=== PATIENT | male | born 1980 | race Asian ===

== ENCOUNTER 2018-10-29 12:56 | Inpatient (IN) | payer OTHER, SELFPAY ==
[2018-10-29] VITALS (15 sets, daily range): BP systolic 114–134; BP diastolic 58–89; PULSE 59–84; RESP 11–20; TEMP 36.3–36.8; O2SAT 97–98; BMI 22.9
--- NOTE | 2018-10-29 13:09 | DI.RAD.S_ITS ---
PROCEDURE: XR CHEST 1V INDICATIONS: dyspnea TECHNIQUE: One view of the chest was acquired. COMPARISON: None. FINDINGS: Surgical changes and devices: None. Lungs and pleura: Lungs are clear. No pleural effusions but there is a significant sized left-sided pneumothorax that measures up to 9.2 cm at the apex and also is elevated medially from the mediastinal contour, but the mediastinum is not shifted rightward Mediastinum: Mediastinal contours appear normal. Heart size is normal. Bones and chest wall: No suspicious bony lesions. Overlying soft tissues appear unremarkable. IMPRESSION: Moderately large left pneumothorax without mediastinal shift and the pneumothorax is largest at the upper lung measuring up to 9.2 cm from the lung tip to the apex of the hemithorax. Findings immediately called to the ER physician caring for the patient. Dictated by: Ivan Smith M.D. on 10/29/2018 at 13:25 Approved by: Ivan Smith M.D. on 10/29/2018 at 13:28
[2018-10-29 13:44] LABS: Add Manual Diff / Slide Review NO; Basophils Absolute Auto 0 /uL (0-100); Basophils Percent Auto 0.7 % (0-2); Eosinophils Absolute Auto 400 /uL (0-450); Eosinophils Percent Auto 6.8 % (2-4); Hematocrit 43.1 % (41-53); Hemoglobin 14.6 g/dL (13.5-17.5); Lymphocytes Absolute Auto 1800 /uL (1100-4500); Lymphocytes Percent Auto 28.5 % (25-40); Mean Corpuscular HGB Conc 33.8 % (30-36); Mean Corpuscular Hemoglobin 30.8 PG (26-34); Mean Corpuscular Volume 91.1 fL (80-100); Monocytes Absolute Auto 700 /uL (0-900); Monocytes Percent Auto 10.5 % (3-14); Neutrophils Absolute Auto 3300 /uL (1500-7000); Neutrophils Percent Auto 53.5 % (50-75); Platelet Count 328 X10^3/uL (150-400); Red Blood Cell Count 4.74 X10^6/uL (4.5-5.9); White Blood Cell Count 6.3 X10^3/uL (4.5-11.0)
[2018-10-29] MEDS: SODIUM CHLORIDE 0.9% 1,000 ML 1000 ML IV (13:47)
[2018-10-29 13:55] LABS: INR 1.1 (0.9-1.3); Prothrombin Time 12.7 SECONDS (10.1-12.7)
[2018-10-29 14:00] LABS: Alanine Aminotransferase 23 IU/L (21-72); Albumin 4.3 g/dL (3.5-5.0); Albumin Globulin Ratio 1.4 (1.0-2.8); Alkaline Phosphatase 52 U/L (38-126); Aspartate Aminotransferase 24 IU/L (17-59); Bilirubin Total 0.5 mg/dL (0.2-1.3); Blood Urea Nitrogen 17 mg/dL (9-20); Calcium 9.6 mg/dL (8.4-10.2); Carbon Dioxide 28 mmol/L (22-32); Chloride 104 mmol/L (98-107); Estimated Glomerular Filt Rate > 60.0 mL/min (>60); Glucose 101 mg/dL (70-100); HEMOLYSIS < 15 (0-50); Sodium 139 mmol/L (137-145); Total Protein 7.3 g/dL (6.3-8.2)
--- NOTE | 2018-10-29 14:04 | ED.SOB ---
HPI - SOB/Dyspnea General Chief Complaint: Shortness of Breath/Dyspnea Stated Complaint: pneumothorax Time Seen by Provider: 10/29/18 13:09 Source: patient Mode of arrival: ambulatory Limitations: no limitations History of Present Illness Patient presents emergency department after being diagnosed with a pneumothorax in clinic. He states that he began noticing a mild burning sensation in his lungs about 1 week ago after he did his physical performance tests for the . He states this involved doing a lot of calisthenics, including pushups, as well as various amounts of running. The patient states that he did not think much of the burning, because his lungs often burn after exerting himself, but he states that over the ensuing few days, he began to notice that he was uncomfortable when he laid on his left side. Patient finally went to see his primary care physician today, and they obtained a chest x-ray, which showed a left-sided pneumothorax. Patient states he was a smoker previously, but has not smoked in some years. He states he is very healthy, and frequently physically active. No history of pneumothorax previously. No diagnosed history of connective tissue disorder. Patient denies shortness of breath currently. No chest pain. No cough. Related Data Home Medications Medication Instructions Recorded Confirmed No Known Home Medications 10/29/18 10/29/18 Allergies Allergy/AdvReac Type Severity Reaction Status Date / Time No Known Drug Allergies Allergy Verified 11/04/18 10:06 Review of Systems Constitutional Denies chills, Denies fever(s), Denies lethargy and Denies weakness Eyes Denies change in vision, Denies eye discharge, Denies irritation and Denies loss of vision ENT Ears, Nose, Mouth, and Throat: Denies change in voice, Denies neck pain and Denies sore throat Cardiovascular Denies chest pain, Denies irregular heart rhythm, Denies lightheadedness, Denies palpitations, Reports dyspnea (Mild, intermittent), Denies dyspnea on exertion and Denies orthopnea Comments: Chest burning Respiratory Denies cough, Reports dyspnea (Mild, intermittent), Denies dyspnea on exertion and Denies wheezing Gastrointestinal Gastrointestinal: Denies abdominal pain, Denies change in bowel habits, Denies diarrhea, Denies nausea and Denies vomiting Genitourinary Denies hematuria, Denies flank pain, Denies urinary incontinence and Denies urinary urgency Musculoskeletal Denies neck pain Integumentary/Breasts Denies pruritus, Denies erythema, Denies rash and Denies wounds Neurologic Denies confusion, Denies loss of vision and Denies weakness Psychiatric Denies anxiety, Denies confusion, Denies depression, Denies homicidal ideation and Denies suicidal ideation Endocrine Denies palpitations Hematologic/Lymphatic Denies easy bruising Allergic/Immunologic Denies wheezing [facility] Medical History Low back pain (Acute) Surgical History No history of previous surgery (Acute) Social History household members: spouse Smoking Status: Former smoker alcohol intake: current Social History household members: spouse Smoking Status: Former smoker alcohol intake: current Exam Initial Vital Signs Initial Vital Signs: Vital Signs Temperature 98.3 F 10/29/18 13:08 Pulse Rate 74 10/29/18 13:08 Respiratory Rate 16 10/29/18 13:08 Blood Pressure 130/77 10/29/18 13:08 Pulse Oximetry 97 10/29/18 13:08 Const General: cooperative and well developed Nutritional Appearance: well nourished Orientation: alert, awake, oriented x3 and not confused HENMT Head: normocephalic and atraumatic Ears: external ears normal and TM's normal bilaterally Nose: external nose normal and No nasal discharge Face and sinus: sinuses nontender, face symmetric, no sinus tenderness and No dry mucous membranes Mouth: oral mucosae normal and moist mucous membranes Teeth and gingiva: dentition normal Throat: tonsils normal and uvula midline Eyes General: appearance normal, both eyes and all related structures Eyelids: eyelids normal Conjunctivae: conjunctivae normal Sclera: sclerae normal Pupils: PERRL EOM: EOM intact bilaterally Neck Neck: normal visual inspection, trachea midline, No lymphadenopathy, No midline deformity and No JVD Lymphatic: No lymphedema Chest Chest: normal inspection of the chest Resp Effort & Inspection: normal respiratory effort, able to speak in complete sentences, no respiratory distress and no use of accessory muscles Auscultation: clear to auscultation bilaterally, no rales, no rhonchi and no wheezes Other: Patient has mildly decreased breath sounds on the left compared to the right. Cardio Rate: regular rate Rhythm: regular rhythm Heart Sounds: no click, no gallops, no murmurs and no rubs Pulses: normal peripheral pulses GI Inspection: non-distended Palpation: soft, no hepatosplenomegaly, No guarding, No pulsatile mass and No tender Auscultation: normal bowel sounds Back/Spine/Pelvis Back: No CVA tenderness Cervical Spine: cervical ROM normal and No pain with cervical ROM Thoracic/Lumbar Spine: thoracic and lumbar spine normal to inspection Skin General: no rashes or lesions noted, No jaundice and No petechiae Neuro General: alert, oriented x3, gait normal and no focal motor deficits Speech: speech normal Extrem General: full ROM, no clubbing, cyanosis or edema, no pedal edema and no calf tenderness Psych Appearance: well kempt Mental Status: mental status grossly normal Attitude: cooperative Thought Content: normal and suicidality Judgment: judgment good Procedures Chest Tube Chest Tube 1: Chest Tube Location: left, anterior axillary line and fifth interspace Chest Tube Prep: Yes betadine prep and sterile drapes applied Local Anesthetic: lidocaine 2% Amount of anesthesia used (mL): 3 Incision Made With: #11 blade Post Procedure: sterile dressing applied Tube Drainage: other (Air) Post Procedure CXR?: Yes Patient Tolerated Procedure: Yes Progress: Pigtail catheter was placed under sterile precautions, without difficulty. Procedural Sedation Patient Age: Patient is 5yrs or older Consent signed: Yes Time out performed: Yes Indication: other (Chest tube placement) ASA Class: I Mallampati Airway Classification: Class I Preparation: chisel worker applied, pulse oximeter, capnometry used and suction/airway equipment at bedside Midazolam: IV Midazolam dose (mg): 5 ED Sedation Level: Minimal Patient Tolerated Procedure: Well Complications: none Course Course Narrative: Patient was evaluated in the emergency department with a chest x-ray, and found to have a large, left-sided pneumothorax. The patient was clinically stable, but I did feel the patient would need to have a chest tube placed and be admitted to the hospital. I spoke with surgeon on-call, who affirmed chest tube rather than 100% oxygen. Patient tolerated the procedure very well, and pneumothorax was found to be largely resolved after placement of chest tube, on repeat x-ray. Patient was admitted to the intensive care unit. Orders Ordered: ED Orders 11/04/18 13:26 XR chest 1V Stat 11/05/18 05:00 Basic Metabolic Panel Routine Complete Blood Count AUTO DIFF Routine Magnesium Routine Acetaminophen (Tylenol) 975 mg PO Q6HR [facility] Last Admin: 11/04/18 17:21 Dose: 975 mg Gabapentin (Neurontin) 900 mg PO BEDTIME [facility] Heparin Sodium (Porcine) (Heparin) 5,000 unit SUBCUT Q8HR [facility] Last Admin: 11/04/18 17:20 Dose: 5,000 unit Lactated Ringer's (Lactated Ringers) 1,000 mls @ 75 mls/hr IV CONT [facility] Last Admin: 11/04/18 15:16 Dose: 75 mls/hr Infusion: 11/04/18 15:16 Dose: 75 mls/hr Admin: 11/04/18 13:45 Dose: 75 mls/hr Infusion: 11/04/18 13:45 Dose: 75 mls/hr Admin: 11/04/18 09:39 Dose: 75 mls/hr Infusion: 11/04/18 09:39 Dose: 75 mls/hr Admin: 11/03/18 22:09 Dose: 75 mls/hr HYDROMORPHONE SUPPLY CHAIN DESIGN MANAGER (6MG/30ML) (Dilaudid [employer] Salesperson (6mg/30ml)) 6 mg in 30 mls @ 0 mls/hr IV Q8HR PRN PRN Reason: Chest Pain Last Admin: 11/04/18 16:15 Dose: 0 mls/hr Methocarbamol (Robaxin) 750 mg PO QID [facility] Last Admin: 11/04/18 17:20 Dose: 750 mg Morphine Sulfate (Morphine) 2 mg IV Q2HR PRN PRN Reason: Pain, Moderate (4-6) Last Admin: 11/04/18 09:33 Dose: 2 mg Admin: 11/01/18 04:12 Dose: 2 mg Admin: 11/01/18 00:05 Dose: 2 mg Admin: 10/31/18 21:42 Dose: 2 mg Morphine Sulfate (Morphine) 4 mg IV Q2HR PRN PRN Reason: Pain, Severe (7-10) Last Admin: 11/04/18 15:16 Dose: 4 mg Naloxone HCl (Narcan) 0.2 mg IV Q2MIN PRN; Protocol PRN Reason: Opiate Reversal Ondansetron HCl (Zofran) 4 mg IV Q4HR PRN PRN Reason: Nausea And Vomiting Polyethylene Glycol (Miralax) 17 gm PO BID LISSETH Sodium Chloride (Normal Saline 0.9% Flush) 10 ml IV BID [facility] Last Admin: 11/04/18 15:37 Dose: Not Given Admin: 11/03/18 21:16 Dose: Not Given Admin: 11/03/18 09:10 Dose: 10 ml Admin: 11/02/18 20:54 Dose: 10 ml Admin: 11/02/18 07:56 Dose: 10 ml Admin: 11/01/18 21:47 Dose: 10 ml Admin: 11/01/18 12:22 Dose: 10 ml Admin: 10/31/18 21:03 Dose: 10 ml Admin: 10/31/18 11:03 Dose: 10 ml Admin: 10/30/18 22:56 Dose: 10 ml Sodium Chloride (Normal Saline 0.9% Flush) 10 ml IV PRN PRN PRN Reason: Flush Discontinued Medications Acetaminophen (Tylenol) 650 mg PO Q6HR PRN PRN Reason: As Needed for Fever/Mild Pain Bupivacaine HCl/Epinephrine Bitart (Sensorcaine 0.25% W/ Epi (Pf)) 30 ml INJ NOW ONE Stop: 11/04/18 12:14 Last Admin: 11/04/18 12:13 Dose: 30 ml Heparin Sodium (Porcine) (Heparin) 5,000 unit SUBCUT Q8HR [facility] Last Admin: 11/03/18 15:06 Dose: Not Given Admin: 11/03/18 06:24 Dose: 5,000 unit Admin: 11/02/18 23:21 Dose: 5,000 unit Admin: 11/02/18 17:41 Dose: 5,000 unit Admin: 11/01/18 21:47 Dose: 5,000 unit Admin: 11/01/18 14:05 Dose: 5,000 unit Admin: 11/01/18 06:28 Dose: 5,000 unit Admin: 10/31/18 21:03 Dose: Not Given Admin: 10/31/18 14:37 Dose: 5,000 unit Admin: 10/31/18 06:02 Dose: 5,000 unit Admin: 10/30/18 22:56 Dose: 5,000 unit Admin: 10/30/18 16:44 Dose: 5,000 unit Admin: 10/30/18 06:09 Dose: 5,000 unit Admin: 10/30/18 00:44 Dose: Not Given Heparin Sodium (Porcine) (Heparin) 5,000 unit SUBCUT Q8HR [facility] Last Admin: 11/04/18 05:59 Dose: Not Given Admin: 11/03/18 22:08 Dose: 5,000 unit Hydromorphone HCl (Dilaudid) 0.25 mg IV Q5MIN PRN PRN Reason: Pain, Mild (1-3) Hydromorphone HCl (Dilaudid) 0.5 mg IV Q5MIN PRN PRN Reason: Pain, Moderate (4-6) Hydromorphone HCl (Dilaudid) 1 mg IV Q5MIN PRN PRN Reason: Pain, Severe (7-10) Last Admin: 11/04/18 14:11 Dose: 1 mg Admin: 11/04/18 13:42 Dose: 1 mg Hydroxyzine HCl (Vistaril) 25 mg IM NOW PRN PRN Reason: Pain, Mild (1-3) Last Admin: 11/04/18 14:34 Dose: 25 mg Hydroxyzine Pamoate (Vistaril) 25 mg PO NOW PRN PRN Reason: Pain, Mild (1-3) Sodium Chloride (Normal Saline 0.9%) 1,000 mls @ 1,000 mls/hr IV BOLUS ONE Stop: 10/29/18 14:20 Last Infusion: 10/29/18 14:47 Dose: 0 mls/hr Admin: 10/29/18 13:47 Dose: 1,000 mls/hr Lactated Ringer's (Lactated Ringers) 1,000 mls @ 100 mls/hr IV CONT [facility] Last Infusion: 10/30/18 15:37 Dose: 0 mls/hr Admin: 10/30/18 05:00 Dose: 100 mls/hr Infusion: 10/30/18 05:00 Dose: 100 mls/hr Admin: 10/29/18 19:01 Dose: 100 mls/hr Lactated Ringer's (Lactated Ringers) 1,000 mls @ 42 mls/hr IV CONT LISSETH Last Infusion: 11/03/18 22:09 Dose: 0 mls/hr Admin: 11/03/18 19:33 Dose: 42 mls/hr Ceftriaxone Sodium/Dextrose (Rocephin) 1 gm in 50 mls @ 100 mls/hr IV INTRA-OP ONE Stop: 11/04/18 09:13 Last Admin: 11/04/18 10:35 Dose: 100 mls/hr Meperidine HCl (Demerol) 25 mg IV Q5MIN PRN PRN Reason: Pain or shivering Metoclopramide HCl (Reglan) 10 mg IV NOW PRN PRN Reason: Nausea And Vomiting Midazolam HCl (Versed) 5 mg IV NOW ONE Stop: 10/29/18 15:40 Last Admin: 10/29/18 15:41 Dose: 5 mg Morphine Sulfate (Morphine) 4 mg IV NOW ONE Stop: 11/04/18 14:42 Last Admin: 11/04/18 14:43 Dose: 4 mg Morphine Sulfate (Morphine) 4 mg IV NOW ONE Stop: 11/04/18 15:50 Last Admin: 11/04/18 16:12 Dose: 4 mg Ondansetron HCl (Zofran) 4 mg IV NOW PRN PRN Reason: Nausea And Vomiting Oxycodone HCl (Percolone) 5 mg PO Q3HR PRN PRN Reason: Pain, Moderate (4-6) Last Admin: 11/01/18 06:48 Dose: 5 mg Admin: 11/01/18 03:52 Dose: 5 mg Admin: 11/01/18 00:35 Dose: 5 mg Admin: 10/31/18 21:04 Dose: 5 mg Admin: 10/31/18 16:41 Dose: 5 mg Admin: 10/30/18 21:22 Dose: 5 mg Admin: 10/30/18 11:46 Dose: 5 mg Admin: 10/30/18 00:31 Dose: 5 mg Admin: 10/29/18 19:27 Dose: 5 mg Oxycodone HCl (Percolone) 10 mg PO Q4HR PRN PRN Reason: Pain, Severe (7-10) Last Admin: 11/04/18 03:17 Dose: 10 mg Admin: 11/03/18 19:31 Dose: 10 mg Admin: 11/03/18 12:20 Dose: 10 mg Admin: 11/03/18 04:12 Dose: 10 mg Admin: 11/02/18 20:53 Dose: 10 mg Admin: 11/02/18 14:48 Dose: 10 mg Admin: 11/02/18 07:53 Dose: 10 mg Admin: 11/01/18 22:54 Dose: 10 mg Admin: 11/01/18 14:03 Dose: 10 mg Admin: 11/01/18 09:00 Dose: 10 mg Oxycodone HCl (Percolone) 5 mg PO Q30MIN PRN PRN Reason: Mild or moderate pain Vital Signs - 8 hr 11/04/18 13:29 11/04/18 13:34 11/04/18 13:39 Temperature 96.8 F L Pulse Rate 80 80 108 H Respiratory Rate 14 13 17 Blood Pressure 121/79 121/83 127/87 Pulse Oximetry 99 96 99 11/04/18 13:44 11/04/18 13:49 11/04/18 13:54 Temperature Pulse Rate 84 89 84 Respiratory Rate 13 12 13 Blood Pressure 134/85 125/81 125/81 Pulse Oximetry 98 97 98 11/04/18 14:09 11/04/18 14:24 11/04/18 14:39 Temperature Pulse Rate 91 H 811 H 83 Respiratory Rate 12 99 H 98 H Blood Pressure 145/91 H 138/88 154/93 H Pulse Oximetry 97 11 L 11/04/18 14:54 11/04/18 15:05 11/04/18 15:35 Temperature 97.5 F L 97.7 F Pulse Rate 82 92 H Respiratory Rate 81 H 16 15 Blood Pressure 138/85 144/86 H 139/75 Pulse Oximetry 11 L 96 96 11/04/18 16:05 11/04/18 17:00 11/04/18 17:05 Temperature 97.7 F 98.0 F Pulse Rate 94 H 107 H 91 H Respiratory Rate 15 12 16 Blood Pressure 143/73 H 128/75 Pulse Oximetry 95 94 93 11/04/18 18:05 Temperature 98.2 F Pulse Rate 82 Respiratory Rate 16 Blood Pressure 124/75 Pulse Oximetry 94 MDM - SOB/Dyspnea Medical Records Attestation: I reviewed the patient's medical records. Lab Data Attestation: I reviewed the patient's lab results. Result diagrams: 10/29/18 13:38 10/29/18 13:38 Lab Results 10/29/18 10/29/18 10/29/18 Range/Units 13:38 13:38 13:38 WBC 6.3 (4.5-11.0) X10^3/uL RBC 4.74 (4.5-5.9) X10^6/uL Hgb 14.6 (13.5-17.5) g/dL Hct 43.1 (41-53) % MCV 91.1 (80-100) fL MCH 30.8 (26-34) PG MCHC 33.8 (30-36) % RDW 13.0 (11.6-14.8) % Plt Count 328 (150-400) X10^3/uL Neut % (Auto) 53.5 (50-75) % Lymph % (Auto) 28.5 (25-40) % [place] % (Auto) 10.5 (3-14) % Eos % (Auto) 6.8 H (2-4) % Baso % (Auto) 0.7 (0-2) % Neut # (Auto) 3300 (7195-4337) /uL Lymph # (Auto) 1800 (3072-8629) /uL [place] # (Auto) 700 (0-900) /uL Eos # (Auto) 400 (0-450) /uL Baso # (Auto) 0 (0-100) /uL PT 12.7 (10.1-12.7) SECONDS INR 1.1 (0.9-1.3) Sodium 139 (137-145) mmol/L Potassium 4.0 (3.4-5.1) mmol/L Chloride 104 (98-107) mmol/L Carbon Dioxide 28 (22-32) mmol/L BUN 17 (9-20) mg/dL Creatinine 1.00 (0.66-1.25) mg/dL Estimated GFR > 60.0 (>60) mL/min BUN/Creatinine Ratio 17.0 (6-22) Glucose 101 H (70-100) mg/dL Calcium 9.6 (8.4-10.2) mg/dL Total Bilirubin 0.5 (0.2-1.3) mg/dL AST 24 (17-59) IU/L ALT 23 (21-72) IU/L Alkaline Phosphatase 52 (38-126) U/L Total Protein 7.3 (6.3-8.2) g/dL Albumin 4.3 (3.5-5.0) g/dL Globulin 3.0 (1.7-4.1) g/dL Albumin/Globulin Ratio 1.4 (1.0-2.8) Imaging Data Chest x-ray: Attestation: I personally reviewed and interpreted this imaging study as follows: Radiologist's impression: PROCEDURE: XR CHEST 1V INDICATIONS: dyspnea TECHNIQUE: One view of the chest was acquired. COMPARISON: None. FINDINGS: Surgical changes and devices: None. Lungs and pleura: Lungs are clear. No pleural effusions but there is a significant sized left-sided pneumothorax that measures up to 9.2 cm at the apex and also is elevated medially from the mediastinal contour, but the mediastinum is not shifted rightward Mediastinum: Mediastinal contours appear normal. Heart size is normal. Bones and chest wall: No suspicious bony lesions. Overlying soft tissues appear unremarkable. IMPRESSION: Moderately large left pneumothorax without mediastinal shift and the pneumothorax is largest at the upper lung measuring up to 9.2 cm from the lung tip to the apex of the hemithorax. Findings immediately called to the ER physician caring for the patient. Dictated by: Ivan Smith M.D. on 10/29/2018 at 13:25 Approved by: Ivan Smith M.D. on 10/29/2018 at 13:28 [place] [address] XRay Report Signed Patient: Vel Dhaliwal CMR#: [id number] : 1980Acct:[id number] Age/Sex: 38 / MDate of Service: 10/29/18 Loc: Accession Number: [id number] Procedure: XR chest 1V Ordering Provider: Amy Eid MD PROCEDURE: XR CHEST 1V INDICATIONS: post chest tube insertion TECHNIQUE: One view of the chest was acquired. COMPARISON: [facility] , XR CHEST 1V, 10/29/2018, 13:14. FINDINGS: Surgical changes and devices: A new left small diameter chest tube has been placed from a left-sided lateral approach.. Lungs and pleura: Lungs are abnormal with focal atelectasis along the area of the anterior pneumothorax medially in front of the left heart. The large apical pneumothorax has diminished significantly from 9.2 cm previously now to only approximately 3.1 cm at the apex.. No pleural effusions or pneumothorax. Mediastinum: Mediastinal contours appear normal. Heart size is normal. Bones and chest wall: No suspicious bony lesions. Overlying soft tissues appear unremarkable. IMPRESSION: Chest tube placement on the left, resolving much of the moderately large left pneumothorax that appears spontaneous. Secondary atelectasis is the likely cause for a focal band of radiodensity adjacent to the elevated anterior pneumothorax margin of the left lung. Dictated by: Ivan Smith M.D. on 10/29/2018 at 15:46 Approved by: Ivan Smith M.D. on 10/29/2018 at 15:48 Discharge Plan Departure Patient Disposition: Admitted As Inpatient Clinical Impression: Pneumothorax Qualifiers: Pneumothorax type: spontaneous, primary Qualified Code(s): J93.11 - Primary spontaneous pneumothorax Discharge Date/Time: 10/29/18 15:58 Interventions: ED Discharge Assessment Last Done: 10/29/18 15:58 Admit Date/Time: 10/29/18 16:14 Admit Provider: Jamal Doty
--- NOTE | 2018-10-29 15:29 | DI.RAD.S_ITS ---
PROCEDURE: XR CHEST 1V INDICATIONS: post chest tube insertion TECHNIQUE: One view of the chest was acquired. COMPARISON: [facility], CR, XR CHEST 1V, 10/29/2018, 13:14. FINDINGS: Surgical changes and devices: A new left small diameter chest tube has been placed from a left-sided lateral approach.. Lungs and pleura: Lungs are abnormal with focal atelectasis along the area of the anterior pneumothorax medially in front of the left heart. The large apical pneumothorax has diminished significantly from 9.2 cm previously now to only approximately 3.1 cm at the apex.. No pleural effusions or pneumothorax. Mediastinum: Mediastinal contours appear normal. Heart size is normal. Bones and chest wall: No suspicious bony lesions. Overlying soft tissues appear unremarkable. IMPRESSION: Chest tube placement on the left, resolving much of the moderately large left pneumothorax that appears spontaneous. Secondary atelectasis is the likely cause for a focal band of radiodensity adjacent to the elevated anterior pneumothorax margin of the left lung. Dictated by: Ivan Smith M.D. on 10/29/2018 at 15:46 Approved by: Ivan Smith M.D. on 10/29/2018 at 15:48
[2018-10-29] MEDS: MIDAZOLAM 2 MG/2 ML VIAL 5 MG IV (15:41)
--- NOTE | 2018-10-29 16:04 | PM.HP.1 ---
History of Present Illness Date Patient Seen: 10/29/18 Time Patient Seen: 16:04 Chief complaint: pneumothorax Narrative: Healthy 38 yo man with remote 7 pack/yr hx of smoking presented with several days of acute SOB following rigourus exercise 7 days ago. PT was able to perform significant activity - paddled a kayak, ran etc. but noticed more SOB. Also SOB when layed on L side. Due to 's concern saw PMD today who obtained an CXR demonstrating a large 9+cm Left pneumothorax without air space disease. He was taken urgently to [facility] where a CXR confirmed findings and a small bore chest tube was placed in the L axilla. Pt felt relief with post procedure CXR showing only small 1cm residueal ptx. Pt continues to feel well. No chest pain Patient History Medical History (Updated 10/29/18 @ 16:15 by Amy Eid MD) Low back pain (Acute) Surgical History (Updated 10/29/18 @ 16:09 by Jamal Doty MD) No history of previous surgery (Acute) Social History household members: spouse Smoking Status: Former smoker alcohol intake: current Family & Social History Safety & Behavioral: Feels Safe in Current Yes Environment Been Physically Hurt or No Threatened By a Person Tobacco & Substance use: Smoking Status Never smoker Substance Use Type does not use Meds Home Medications Medication Instructions Recorded Confirmed Type No Known Home Medications 10/29/18 10/29/18 History Allergies Allergy/AdvReac Type Severity Reaction Status Date / Time No Known Drug Allergies Allergy Verified 10/29/18 13:08 Review of Systems Constitutional Constitutional: Denies fever(s) Eyes Eyes: Denies bulging eyes ENT Ears, Nose, Mouth, and Throat: No lip swelling Cardiovascular Cardiovascular: Denies generalize swelling Respiratory Respiratory: Denies stridor Gastrointestinal Gastrointestinal: Denies coffee ground emesis Musculoskeletal Musculoskeletal: Denies loss of height Integumentary/Breasts Skin/Breast: Denies wounds Neurologic Neurologic: Denies abnormal speech and Denies confusion Psychiatric Psychiatric: Denies confusion Endocrine Endocrine: Denies deepening of the voice Hematologic/Lymphatic Hematologic/Lymphatic: Denies lymphadenopathy Allergic/Immunologic Allergic/Immunologic: Denies lip swelling Exam Vital Signs (past 8 hours): - 10/29/18 13:08 10/29/18 15:00 10/29/18 15:05 Temperature 98.3 F Pulse Rate 74 69 70 Respiratory Rate 16 18 18 Blood Pressure 130/77 Blood Pressure [Right Arm] 134/79 126/63 Pulse Oximetry 97 98 97 10/29/18 15:10 10/29/18 15:15 10/29/18 15:20 Temperature Pulse Rate 72 83 84 Respiratory Rate 20 18 20 Blood Pressure Blood Pressure [Right Arm] 134/76 118/69 126/67 Pulse Oximetry 98 97 98 10/29/18 15:25 10/29/18 15:30 10/29/18 15:35 Temperature Pulse Rate 76 74 75 Respiratory Rate 18 20 20 Blood Pressure Blood Pressure [Right Arm] 114/71 123/69 118/78 Pulse Oximetry 97 98 98 10/29/18 15:40 10/29/18 15:45 10/29/18 15:58 Temperature Pulse Rate 74 68 68 Respiratory Rate 20 18 20 Blood Pressure 114/73 Blood Pressure [Right Arm] 119/67 114/73 Pulse Oximetry 97 98 98 10/29/18 15:59 Temperature Pulse Rate 65 Respiratory Rate 11 L Blood Pressure Blood Pressure [Right Arm] Pulse Oximetry Oxygen Delivery Method Room Air Oxygen Flow Rate 2 Const General: cooperative and healthy appearing Orientation: alert [facility] Head: normal to inspection Nose: nares normal Mouth: oral mucosae normal and lip normal Eyes Eyelids: eyelids normal Conjunctivae: conjunctivae normal Sclera: sclerae normal Neck Neck: supple and other (No thyromegally) Chest Chest: other (Breathing comfortably, LCTAB, unable to detect reduced breath sounds on L) Cardio Rhythm: regular rhythm Heart Sounds: S1 normal, S2 normal, no gallops, no murmurs and no rubs GI Other: abd soft nontender nondistended Skin General: no rashes or lesions noted Neuro General: alert and awake Psych Appearance: grossly normal Affect: normal affect Objective Labs Result Diagrams: 10/29/18 13:38 10/29/18 13:38 Labs: Laboratory Results - last 24 hr 10/29/18 10/29/18 10/29/18 13:38 13:38 13:38 WBC 6.3 RBC 4.74 Hgb 14.6 Hct 43.1 MCV 91.1 MCH 30.8 MCHC 33.8 RDW 13.0 Plt Count 328 Neut % (Auto) 53.5 Lymph % (Auto) 28.5 [place] % (Auto) 10.5 Eos % (Auto) 6.8 H Baso % (Auto) 0.7 Neut # (Auto) 3300 Lymph # (Auto) 1800 [place] # (Auto) 700 Eos # (Auto) 400 Baso # (Auto) 0 PT 12.7 INR 1.1 Sodium 139 Potassium 4.0 Chloride 104 Carbon Dioxide 28 BUN 17 Creatinine 1.00 Estimated GFR > 60.0 BUN/Creatinine Ratio 17.0 Glucose 101 H Calcium 9.6 Total Bilirubin 0.5 AST 24 ALT 23 Alkaline Phosphatase 52 Total Protein 7.3 Albumin 4.3 Globulin 3.0 Albumin/Globulin Ratio 1.4 Assessment & Plan Assessment & Plan narrative: 38M now with first ever episode of secondary spontaneous pneumothroax on L in the setting of remote 7 pack yr hx of smoking, now with small residual ptx after small bore chest tube insertion by ED using selenger technique. No respiratory difficulty. 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 Will think about overnight - if wants surgery would perform tomorrow Plan: CT to -20 suction overnight with follow up CXR in am Ok to eat tonight Ongoing discussion re Blebectomy and VATS plurectomy to prevent recurrence.
--- NOTE | 2018-10-29 16:09 | P.HP_ITS ---
History of Present Illness Date Patient Seen: 10/29/18 Time Patient Seen: 16:04 Chief complaint: pneumothorax Narrative: Healthy 38 yo man with remote 7 pack/yr hx of smoking presented with several days of acute SOB following rigourus exercise 7 days ago. PT was able to perform significant activity - paddled a kayak, ran etc. but noticed more SOB. Also SOB when layed on L side. Due to 's concern saw PMD today who obtained an CXR demonstrating a large 9+cm Left pneumothorax without air space disease. He was taken urgently to [facility] where a CXR confirmed findings and a sm all bore chest tube was placed in the L axilla. Pt felt relief with post procedure CXR showing only small 1cm residueal ptx. Pt continues to feel well. No chest pain Patient History Medical History (Updated 10/29/18 @ 16:15 by Amy Eid MD) Low back pain (Acute) Surgical History (Updated 10/29/18 @ 16:09 by Jamal Doty MD) No history of previous surgery (Acute) Social History household members: spouse Smoking Status: Former smoker alcohol intake: current Family & Social History Safety & Behavioral: Feels Safe in Current Yes Environment Been Physically Hurt or No Threatened By a Person Tobacco & Substance use: Smoking Status Never smoker Substance Use Type does not use Meds Home Medications Medication Instructions Recorded Confirmed Type No Known Home Medications 10/29/18 10/29/18 History Allergies Allergy/AdvReac Type Severity Reaction Status Date / Time No Known Drug Allergies Allergy Verified 10/29/18 13:08 Review of Systems Constitutional Constitutional: Denies fever(s) Eyes Eyes: Denies bulging eyes ENT Ears, Nose, Mouth, and Throat: No lip swelling Cardiovascular Cardiovascular: Denies generalize swelling Respiratory Respiratory: Denies stridor Gastrointestinal Gastrointestinal: Denies coffee ground emesis Musculoskeletal Musculoskeletal: Denies loss of height Integumentary/Breasts Skin/Breast: Denies wounds Neurologic Neurologic: Denies abnormal speech and Denies confusion Psychiatric Psychiatric: Denies confusion Endocrine Endocrine: Denies deepening of the voice Hematologic/Lymphatic Hematologic/Lymphatic: Denies lymphadenopathy Allergic/Immunologic Allergic/Immunologic: Denies lip swelling Exam Vital Signs (past 8 hours): - 10/29/18 13:08 10/29/18 15:00 10/29/18 15:05 Temperature 98.3 F Pulse Rate 74 69 70 Respiratory Rate 16 18 18 Blood Pressure 130/77 Blood Pressure [Right Arm] 134/79 126/63 Pulse Oximetry 97 98 97 10/29/18 15:10 10/29/18 15:15 10/29/18 15:20 Temperature Pulse Rate 72 83 84 Respiratory Rate 20 18 20 Blood Pressure Blood Pressure [Right Arm] 134/76 118/69 126/67 Pulse Oximetry 98 97 98 10/29/18 15:25 10/29/18 15:30 10/29/18 15:35 Temperature Pulse Rate 76 74 75 Respiratory Rate 18 20 20 Blood Pressure Blood Pressure [Right Arm] 114/71 123/69 118/78 Pulse Oximetry 97 98 98 10/29/18 15:40 10/29/18 15:45 10/29/18 15:58 Temperature Pulse Rate 74 68 68 Respiratory Rate 20 18 20 Blood Pressure 114/73 Blood Pressure [Right Arm] 119/67 114/73 Pulse Oximetry 97 98 98 10/29/18 15:59 Temperature Pulse Rate 65 Respiratory Rate 11 L Blood Pressure Blood Pressure [Right Arm] Pulse Oximetry Oxygen Delivery Method Room Air Oxygen Flow Rate 2 Const General: cooperative and healthy appearing Orientation: alert [facility] Head: normal to inspection Nose: nares normal Mouth: oral mucosae normal and lip normal Eyes Eyelids: eyelids normal Conjunctivae: conjunctivae normal Sclera: sclerae normal Neck Neck: supple and other (No thyromegally) Chest Chest: other (Breathing comfortably, LCTAB, unable to detect reduced breath sounds on L) Cardio Rhythm: regular rhythm Heart Sounds: S1 normal, S2 normal, no gallops, no murmurs and no rubs GI Other: abd soft nontender nondistended Skin General: no rashes or lesions noted Neuro General: alert and awake Psych Appearance: grossly normal Affect: normal affect Objective Labs Result Diagrams: 10/29/18 13:38 10/29/18 13:38 Labs: Laboratory Results - last 24 hr 10/29/18 10/29/18 10/29/18 13:38 13:38 13:38 WBC 6.3 RBC 4.74 Hgb 14.6 Hct 43.1 MCV 91.1 MCH 30.8 MCHC 33.8 RDW 13.0 Plt Count 328 Neut % (Auto) 53.5 Lymph % (Auto) 28.5 [place] % (Auto) 10.5 Eos % (Auto) 6.8 H Baso % (Auto) 0.7 Neut # (Auto) 3300 Lymph # (Auto) 1800 [place] # (Auto) 700 Eos # (Auto) 400 Baso # (Auto) 0 PT 12.7 INR 1.1 Sodium 139 Potassium 4.0 Chloride 104 Carbon Dioxide 28 BUN 17 Creatinine 1.00 Estimated GFR > 60.0 BUN/Creatinine Ratio 17.0 Glucose 101 H Calcium 9.6 Total Bilirubin 0.5 AST 24 ALT 23 Alkaline Phosphatase 52 Total Protein 7.3 Albumin 4.3 Globulin 3.0 Albumin/Globulin Ratio 1.4 Assessment & Plan Assessment & Plan narrative: 38M now with first ever episode of secondary spon taneous pneumothroax on L in the setting of remote 7 pack yr hx of smoking, now with small residual ptx after small bore chest tube insertion by ED using selenger technique. No respiratory difficulty. 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 Will think about overnight - if wants surgery would perform tomorrow Plan: CT to -20 suction overnight with follow up CXR in am Ok to eat tonight Ongoing discussion re Blebectomy and VATS plurectomy to prevent recurrence.
[2018-10-29] MEDS: LACTATED RINGERS 1,000 ML 100 ML IV (19:01)
[2018-10-29] MEDS: OXYCODONE IR 5 MG TABLET PO (19:27)
[2018-10-30] MEDS: OXYCODONE IR 5 MG TABLET PO ×3 (00:31→21:22)
[2018-10-30 00:35] VITALS: BP 120/63; PULSE 64; RESP 18; TEMP 36.6; O2SAT 97
--- NOTE | 2018-10-30 03:16 | PC.NURSE ---
Securities Adviser Note: 0030: Awake, vital signs stable. Chest tube in place in lt chest, to 30cm suction; dressing cdi and tube is secure. IV in place in lt forearm. Pt states he has some pain at at ct insertion site. at bedside.
[2018-10-30 04:10] VITALS: BP 115/57; PULSE 61; RESP 18; TEMP 36.9; O2SAT 99
[2018-10-30] MEDS: LACTATED RINGERS 1,000 ML 100 ML IV (05:00)
--- NOTE | 2018-10-30 06:00 | DI.RAD.S_ITS ---
PROCEDURE: XR CHEST 1V INDICATIONS: Left pneumothorax TECHNIQUE: One view of the chest was acquired. COMPARISON: [facility], , XR CHEST 1V, 10/29/2018, 15:34. FINDINGS: Surgical changes and devices: Left-sided pigtail chest tube. Lungs and pleura: Left-sided pneumothorax is stable compared to assess the precise 2019 1534 hrs. Lungs are clear. No pleural effusions. Mediastinum: Mediastinal contours appear normal. Heart size is normal. Bones and chest wall: No suspicious bony lesions. Overlying soft tissues appear unremarkable. IMPRESSION: Stable left apical pneumothorax. Dictated by: Jacqui Mcguire MD, PhD on 10/30/2018 at 8:05 Approved by: Jacqui Mcguire MD, PhD on 10/30/2018 at 8:06
[2018-10-30] MEDS: HEPARIN 5,000 UNIT/ML VIAL 5000 UNIT SUBCUT ×3 (06:09→22:56)
[2018-10-30 08:00] VITALS: BP 120/72; PULSE 53; RESP 16; TEMP 36.5; O2SAT 98
--- NOTE | 2018-10-30 08:54 | CM.DANOTE ---
Discharge Planning/Care Management DCP: assessment: case received, EMR reviewed and met with pt and his . Introduced self and role. 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 Jamal Doty. [facility] PCP: [facility]. Pt admitted after discover of a large pneumothorax and now with chest tube and surgery now expected today. Pt and his are very open to the surgery, worried only that [facility] may not pay for it. Conferred with UR RN Darvin who is reviewing case. He notes that this surgery is, per [facility] guidelines, very much an appropriate part of INPT treatement for this specific patient. The UR team is faxing the documentation to [facility] as per usual UR protocol. Pt and his Yuridia are updated re above and express appreciation for the information. Pt says he expects Dr. Doty to return later today. They spoke this morning, surgery is now planned and with time pending the surgery schedule. RN Coordinator Pepito and RN Marly are updated. P: will follow prn for any d/c needs. Discharge Assessment Start: 10/30/18 08:52 Freq: Status: Active Protocol: Document 10/30/18 08:53 ITV (Rec: 10/30/18 08:53 ITV [id number]) Discharge Planning Assessment Advance Directives? No History Provided By Patient Family Member Medical Record Has Patient been admitted in last 30 No days? Prior Living Arrangements House Household Members spouse Independent with ADL's Yes Is patient alert and oriented? Yes Caregiver for Another No Review Status In Process Next Review Type Continued Stay Review
[2018-10-30 13:06] VITALS: BP 115/79; PULSE 64; RESP 16; TEMP 36.6; O2SAT 99
--- NOTE | 2018-10-30 13:26 | P.PN_ITS ---
Subjective Date Patient Seen: 10/30/18 Time Patient Seen: 09:00 Interval history: Feeling well, No SOB no pain Exam Vital Signs (past 8 hours): - 10/30/18 08:00 10/30/18 13:06 Temperature 97.7 F 97.8 F Pulse Rate 53 L 64 Respiratory Rate 16 16 Blood Pressure 120/72 115/79 Pulse Oximetry 98 99 Oxygen Delivery Method Room Air Oxygen Flow Rate 0 Narrative Exam Narrative: comfortable NAD On RA breating comfortably CT with essentially no output, no airleak abd soft nontender Objective Labs Result Diagrams: 10/29/18 13:38 10/29/18 13:38 Labs: Laboratory Results - last 24 hr 10/29/18 10/29/18 10/29/18 13:38 13:38 13:38 WBC 6.3 RBC 4.74 Hgb 14.6 Hct 43.1 MCV 91.1 MCH 30.8 MCHC 33.8 RDW 13.0 Plt Count 328 Neut % (Auto) 53.5 Lymph % (Auto) 28.5 [place] % (Auto) 10.5 Eos % (Auto) 6.8 H Baso % (Auto) 0.7 Neut # (Auto) 3300 Lymph # (Auto) 1800 [place] # (Auto) 700 Eos # (Auto) 400 Baso # (Auto) 0 PT 12.7 INR 1.1 Sodium 139 Potassium 4.0 Chloride 104 Carbon Dioxide 28 BUN 17 Creatinine 1.00 Estimated GFR > 60.0 BUN/Creatinine Ratio 17.0 Glucose 101 H Calcium 9.6 Total Bilirubin 0.5 AST 24 ALT 23 Alkaline Phosphatase 52 Total Protein 7.3 Albumin 4.3 Globulin 3.0 Albumin/Globulin Ratio 1.4 Assessment & Plan Assessment & Plan narrative: 38 yo man HD2 admitted with secondary spontaneous pneumothorax with remote smoking hx. Lung is slowly reinflating after small jaskaran CT placement in ED yesterday - residual 2cm apical ptx, improved over yest by small amount. Substantial discussion had with pt regarding management - I discussed that with prior smoking history he very likely has apical blebs and is at risk of recurrence. Without smoking history i quoted him a 20% risk of recurrence as the lower range of risk. With the addition of his 7 pack yrs of smoking could be as high at 50%. 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 He is concerned with the possibility of recurrence in a setting without readily available surgical care. With this in mind he desires VATS blecbectomy and plurectomy to significantly reduce the chance of recurrence. With OR staffing dont have the capacity to perform this today. Plan is to continue chest tube to -20 today, CXR tomorrow. If still in house early next week would perform surgery, other cannon can return to hospital if meets d/c criteria OK to eat IS Dr Chow kindly covering this weekend
[2018-10-30 15:35] VITALS: BP 101/52; PULSE 62; RESP 16; TEMP 36.4; O2SAT 96
[2018-10-30 20:39] VITALS: BP 114/62; PULSE 60; RESP 16; TEMP 36.7; O2SAT 99
--- NOTE | 2018-10-30 22:03 | PC.NURSE ---
ashley note pt with small left anterior chest tube, connected to wall suction. No air leak noted. No crepitus palpated. Medicated once with oxycodone. Pt up in room, moving as far as chest tube allows.
[2018-10-30] MEDS: SODIUM CHLORIDE 0.9% FLUSH 10 ML IV (22:56)
--- NOTE | 2018-10-31 | DI.CT.S_ITS ---
PROCEDURE: CT CHEST W CON INDICATIONS: Defined bleb anatomy left chest. Rule out any neoplastic pr TECHNIQUE: After the administration of intravenous contrast, 5 mm thick sections acquired from the pulmonary apices to the posterior costophrenic angles. 7 mm thick coronal and sagittal MIP reformats were acquired. For radiation dose reduction, the following was used: automated exposure control, adjustment of mA and/or kV according to patient size. COMPARISON: [facility], CR, XR CHEST 1V, 10/29/2018, 13:14. [facility], CR, XR CHEST 1V, 10/31/2018, 5:42. FINDINGS: Image quality: Diagnostic. Lungs and pleura: There is a large left-sided pneumothorax without definite mediastinal shift. The pigtail catheter has been withdrawn and is positioned within the pectoralis muscles and not within the thoracic cavity. Areas of interstitial thickening within the left lung are evident. However, no focal: The or definitive emphysematous changes are evident. The airways within the left lung appear to be within normal limits. Areas of atelectasis are seen along the posterior aspect of the left lung. There is a small left-sided pleural effusion. Aeration of the right lung is within normal limits. No blebs are evident within the right lung. The right lung is well aerated. No right-sided pneumothorax or pleural effusion is identified. Mediastinum: Heart size is normal. No pericardial effusion. No mediastinal or hilar adenopathy by size criteria. Thoracic aorta and central pulmonary arteries are normal in size. Esophagus is normal in caliber. No hiatal hernia. Bones and chest wall: No suspicious bony lesions. No vertebral body compression fractures. No displaced rib fractures are evident. No axillary or supraclavicular adenopathy by size criteria. Thyroid gland is not enlarged or inflamed. Abdomen: Visualized upper abdominal solid organs appear normal. Upper abdominal bowel loops are normal in caliber. IMPRESSION: 1. Large left-sided pneumothorax. No definitive mediastinal shift. The cause is uncertain. No obvious blebs or displaced rib fractures. 2. Left-sided chest tube has been withdrawn and is now located outside the thoracic cavity. Please consider replacing this chest tube. 3. Interstitial prominence within the left lung probably represents areas of atelectasis. Superimposed chronic interstitial changes/scarring are difficult to exclude. Dictated by: Dung Arias M.D. on 10/31/2018 at 16:57 Approved by: Dung Arias M.D. on 10/31/2018 at 17:02
[2018-10-31 01:41] VITALS: BP 111/68; PULSE 56; RESP 16; TEMP 36.9; O2SAT 97
--- NOTE | 2018-10-31 01:46 | PC.NURSE ---
Addendum entered by Elizabeth Evans R.N. 10/31/18 06:11: Slept most of shift. Chest xray completed by [employer]. Given incentive spirometer and provided teaching on use and frequency; demonstrated ability to use and able to get to 3200 Original Note: Patient is alert and oriented. Breath sounds CTA with RA sat of 97%. Chest tube intact with no air leak/crepitus; to 20cm suction. Denies SOB either at rest or with activity. Denies nausea. BT present. Independent with mobiity. Voiding without difficulty. Fall risk score is low. Denies pain. rooming in.
[2018-10-31 06:00] VITALS: BP 116/58; PULSE 59; RESP 16; TEMP 36.7; O2SAT 95
--- NOTE | 2018-10-31 06:00 | DI.RAD.S_ITS ---
PROCEDURE: XR CHEST 1V INDICATIONS: Left pneumothorax TECHNIQUE: One view of the chest was acquired. COMPARISON: None. FINDINGS: Surgical changes and devices: A left-sided chest tube is identified with the tip overlying the upper portion of the left lung. Lungs and pleura: There is a moderate-sized left-sided pneumothorax, which has increased in the interim, measuring approximately 4.4 cm at the apex, previously measuring 2.5 cm. No definite pleural effusion is evident. Interstitial changes within the lungs probably represent chronic lung changes. No lobar consolidation is evident. Mediastinum: Mediastinal contours appear normal. Heart size is normal. Bones and chest wall: No suspicious bony lesions. Overlying soft tissues appear unremarkable. IMPRESSION: 1. Moderate left-sided pneumothorax has increased in the interim. 2. Left-sided chest tube catheter appears grossly unchanged. Dictated by: Dung Arias M.D. on 10/31/2018 at 7:09 Approved by: Dung Arias M.D. on 10/31/2018 at 7:11
[2018-10-31] MEDS: HEPARIN 5,000 UNIT/ML VIAL 5000 UNIT SUBCUT ×2 (06:02→14:37)
[2018-10-31 10:05] VITALS: BP 119/74; PULSE 77; RESP 16; TEMP 36.7; O2SAT 98
--- NOTE | 2018-10-31 10:27 | CM.DPC ---
DCP: continued: EMR reviewed and note that Dr. Mckenzie did followup later in day with pt re his surgery after conferring with the surgical team. He notes that OR staffing could not accommodate pt for surgery yesterday as per initial plan and updated plan now is for pt to either d/c to home if he is stable for same or continue in the hospital setting with the surgery early in the week. Dr. Chow should be in later today....will be following.
[2018-10-31] MEDS: SODIUM CHLORIDE 0.9% FLUSH 10 ML IV ×2 (11:03→21:03)
--- NOTE | 2018-10-31 11:16 | PC.NURSE ---
AM shift Pt is A/o x4, denies pain at present. CT to L side with dressing that is CDI. No crepitus noted. Dressing CDI. Chest tube to 20mm suction. Pt is up in the room indep. Spo2 99% RA. IS being used with > 3000, is rooming in. Plan to continue for Surgery on Friday. No needs at present.
--- NOTE | 2018-10-31 14:03 | P.PN_ITS ---
Subjective Date Patient Seen: 10/31/18 Time Patient Seen: 14:00 Interval history: Patient is breathing well. Has no pain or shortness of breath. Exam Vital Signs (past 8 hours): - 10/31/18 10:05 Temperature 98.1 F Pulse Rate 77 Respiratory Rate 16 Blood Pressure 119/74 Pulse Oximetry 98 Oxygen Delivery Method Room Air Oxygen Flow Rate 0 Narrative Exam Narrative: Decreased breath sounds on the left anterior compared to the right. Equal breath sounds in the bases. Heart regular rate and rhythm without murmur gallop. Abdomen is scaphoid soft nontender. Patient is alert and oriented. Objective Labs Result Diagrams: 10/29/18 13:38 10/29/18 13:38 Assessment & Plan Assessment & Plan narrative: Patient with spontaneous pneumothorax. The x-ray this morning shows lungs little further collapse. I looked at the wall suction it was quite low side turned up. May just be a matter of increasing suction on the tube that presently is there. I did note however there is not fluctuation in the tube and I checked all the connections which seemed to be okay. The tube does not appear to have backed out of the chest are not quite sure if we need at a tube or not. In any of think it prudent to start planning for blood resection. The patient is not sealed and though he has no symptoms, he was min imally symptomatic when he came in with 50% pneumothorax. We will see if changing the wall suction has any effect. He is to continue to deep breathe and cough and ambulate.
[2018-10-31 15:34] VITALS: BP 110/68; PULSE 62; RESP 16; TEMP 36.4; O2SAT 97
[2018-10-31] MEDS: OXYCODONE IR 5 MG TABLET PO ×2 (16:41→21:04)
--- NOTE | 2018-10-31 18:12 | PC.NURSE ---
Pt is sitting up in bed and in no distress. Reported feeling of heaviness on left chest well. Given percolone to help with discomfort. Chest drain connections intact, dressing intact and drainage device connected to wall suction at 95 mmhg of continuous. Noted no blubbling or change in fluid level with cough. Called MD to advise. CT scan with contrast already ordered at this time. Surgeon aware of lack of signs of airflow to cannister. Pt then completed CT scan and report is now back. Waiting for surgeons orders. Pt reports no discomfort at this time.
--- NOTE | 2018-10-31 19:51 | PC.NURSE ---
Pt taken to ICU for chest tube placement. Will have conscious sedation procedure and then return to his room once his vital signs are stable.
--- NOTE | 2018-10-31 20:10 | DI.RAD.S_ITS ---
PROCEDURE: XR CHEST 1V INDICATIONS: chest tube TECHNIQUE: One view of the chest was acquired. COMPARISON: [facility], CR, XR CHEST 1V, 10/29/2018, 13:14. [facility], CR, XR CHEST 1V, 10/29/2018, 15:34. [facility], CR, XR CHEST 1V, 10/30/2018, 5:41. [facility], CT, CT CHEST W CON, 10/31/2018, 16:54. FINDINGS: Surgical changes and devices: None. Lungs and pleura: Lungs are clear. No pleural effusions and the relatively large pneumothorax that redeveloped prior to CT scanning earlier today has been almost completely resolved by a left lateral pleural drain extending towards the apex. pneumothorax. Mediastinum: Mediastinal contours appear normal. Heart size is normal. Bones and chest wall: No suspicious bony lesions. Overlying soft tissues appear unremarkable. IMPRESSION: Scant residual left apical pneumothorax after replacement of a left pleural chest tube to resolve moderately large recurrent left pneumothorax. A Dictated by: Ivan Smith M.D. on 10/31/2018 at 20:28 Approved by: Ivan Smith M.D. on 10/31/2018 at 20:32
--- NOTE | 2018-10-31 20:24 | P.OP_ITS ---
Operative Date/Time/Diagnoses Date of procedure: 10/31/18 Time of procedure: 20:18 Pre-op diagnosis: Displaced chest tube Post-op diagnosis: same Procedure & Clinicians Procedure: Placement of 20 Icelandic chest tube Same procedure as scheduled: Yes Indications: Displaced chest tube with recurrent pneumothorax Surgeon: Bimal Chow Click Yes if Unassisted: Yes Anesthesia Type: Sedation and Local Operative Notes Findings: Whole tube had displaced into the muscle. New tube in good position. Secured with suture. Lung re-expanded. Very slight space remaining. Closure Type: not applicable Specimen(s): none sent Prosthetic devices, grafts, tissues, transplants, or devices: Twenty Icelandic chest tube inserted Estimated Blood Loss (mL): 3 Blood products transfused: none Procedure in detail: Due to the fact that the lung had never completely re- expanded with a small tube I decided to place a larger 1. The Patient was placed with his left arm over his head. Time-out was performed. He was sedated using fentanyl and Versed which was directed by the surgeon. The area was prepped and draped in the usual fashion. I chose an area with a lack of muscle between the Lat and [place] major. It was 2 interspaces below the prior insertion site. I used this based on the evaluation of the CT scan and the fact that there was a blister of the skin right where I wanted to place the incision. Therefore was forced to go below that. Local anesthetic was infiltrated a space below the insertion site and also above the rib of the space that we were going to enter. Small incisions made the skinning using blunt dissection a tunnel was created to the rib interspace. The chest was entered directly over top of the rib. There was a small gush of air. The 20 Icelandic chest tube was inserted and had good fogging of the tube. It was incised to 16 cm depth. It was secured with 2 0 nylon sutures. Xeroform and gauze were placed around it and dressing was applied. Immediate post procedure chest x-ray showed the lung was nearly reeks banded. There was a small residual pneumothorax. Complications: none Condition: stable Disposition: Acute Care Plan for aftercare: Return to floor post recovery from sedation. Plan bled resection on Friday.
--- NOTE | 2018-10-31 20:40 | PC.NURSE ---
2039- Patient had conscious sedation for chest tube placement. Patient tolerated well. See procedural documentation and vitals in the chart. Patient stable for discharge back to acute care room 212.
[2018-10-31] MEDS: MORPHINE 2 MG/ML INJ IV (21:42)
--- NOTE | 2018-10-31 22:08 | PC.NURSE ---
Pt returned to floor after chest tube insertion. Dressing to left chest wall CDI with all connections secure. Aziza drainage system in place with no drainage in cannister but serous-sang seen in tubing. Connected to wall suction. Pt reports increased pain at 5/10 - given oxycodone 10 mg with no improvement. Given 2mg IV morphine and pt reported some improvement. Spouse in with pt and pt sitting up in bed eating and drinking.
[2018-10-31 23:47] VITALS: BP 117/60; PULSE 51; RESP 16; TEMP 36.3; O2SAT 97
[2018-11-01] MEDS: MORPHINE 2 MG/ML INJ IV ×2 (00:05→04:12)
[2018-11-01] MEDS: OXYCODONE IR 5 MG TABLET PO ×3 (00:35→06:48)
[2018-11-01 05:52] VITALS: BP 105/60; PULSE 50; RESP 16; TEMP 36.5; O2SAT 97
[2018-11-01] MEDS: HEPARIN 5,000 UNIT/ML VIAL 5000 UNIT SUBCUT ×3 (06:28→21:47)
--- NOTE | 2018-11-01 06:53 | PC.NURSE ---
Pt having quite a bit of pain at the chest tube insertion site, requiring IV morphine and percolone 5mg PRN. Pt states his pain is a bit less this morning which he is happy about. No drainage from chest tube. Sero-sanguinous drainage seen in beginning of tubing closest to patient. Chest tube to -20suction and hooked up to continuous wall suction at 100mmHg
--- NOTE | 2018-11-01 08:56 | PC.NURSE ---
Am shift note Pt is A/o x4, rating pain 4/10, obvious facial grimacing with movement. Chest tube is patent to L chest with -20cmHg suction and wall suction 100cmHg, scant serosang drainage to tubing L FA PIV patent. Orders rec'd to try 10mg oxycodone q4, as Pt feels IVP Morphine a bit much for his pain between dosing of oxycodone. No crepitus noted to L chest. Dressing with old drainage. cont to eng deep breathing and coughing. POC reviewed for VATS friday. Call light in reach.
[2018-11-01] MEDS: OXYCODONE IR 10 MG TABLET PO ×3 (09:00→22:54)
[2018-11-01 09:04] VITALS: BP 105/66; PULSE 52; RESP 16; TEMP 36.3; O2SAT 97
--- NOTE | 2018-11-01 10:10 | PM.PN.1 ---
Subjective Date Patient Seen: 11/01/18 Time Patient Seen: 10:05 Interval history: Patient feels okay. His little more soreness with a chest tube insertion site is. Breathing okay. No cough. Exam Vital Signs (past 8 hours): - 11/01/18 05:52 11/01/18 09:04 Temperature 97.7 F 97.4 F L Pulse Rate 50 L 52 L Respiratory Rate 16 16 Blood Pressure 105/60 105/66 Pulse Oximetry 97 97 Oxygen Delivery Method Room Air Oxygen Flow Rate 0 Narrative Exam Narrative: Good air movement bilaterally. Equal breath sounds. Dressing is intact. Minimal drainage. With cough patient has an air leak. Objective Labs Result Diagrams: 10/29/18 13:38 10/29/18 13:38 Assessment & Plan Assessment & Plan narrative: Spontaneous pneumothorax. Chest tube was reinserted after the original 1 backed out. Equal breath sounds bilaterally. Will check a chest x-ray to make sure the long as remained re-expanded. There is an air leak. I talked to the patient today about the operation to remove the bleb area of the lung which is the most likely source of this problem. Generally this means removing a small amount of lung at the edge and then taking off the pleura in that areas of the lung sticks of will not recur collapse. Dr. Doty will be in in the morning to talk to the patient further. I have adjusted the patient's pain medicines so it is more affective with oral agents.
[2018-11-01] MEDS: SODIUM CHLORIDE 0.9% FLUSH 10 ML IV ×2 (12:22→21:47)
[2018-11-01 13:15] VITALS: BP 116/60; PULSE 61; RESP 16; TEMP 36.8; O2SAT 97
--- NOTE | 2018-11-01 13:48 | CM.DPC ---
DCP Cont: Per MD, pt seems to be tolerating his new chest tube placement from 10/31/18 but continues to have some pain and possible air leak. Per RN, pt has scheduled surgery set for tomorrow 11/02/18 for ongoing medical needs. D/C planning needs unclear at this time. Plan: SW to follow closely after further surgical procedure tomorrow 11/02/18 to determine d/c planning needs to determine if pt will be safe for d/c home when stable. SONAM Oquendo
[2018-11-01 16:09] VITALS: BP 104/65; PULSE 63; RESP 16; TEMP 36.5; O2SAT 96
--- NOTE | 2018-11-01 17:04 | PC.NURSE ---
Addendum entered by Fernanda Garcia R.N. 11/01/18 22:07: pt reporting itching on chest and noticed two new blisters. Blisters are intact, one under the tegaderm. Patient doesn't have any Benadryl (or something of the similar) ordered and I let him know we would be happy to call in the request. Patient declined but agreed to inform nursing team if that changes. Addendum entered by Fernanda Garcia R.N. 11/01/18 18:45: pt and expressed concern regarding gauze. Serosanguous drainage is contained within tegaderm so I outline the shadow. Educated the pt to alert staff if drainage seeps outline of tegaderm so that we can re-enforce it. Original Note: OLNNIE Shift pt AO and receptive to care. at bedside and another visitor in room. pt reporting 2/10 tolerable pain, but states that it is more painful than the previous tube. Dressing is dry and intact, but has serosanguenous drainage on gauze (which is under tegaderms). Aziza is suctioning at -20 and 100 at the wall. pt tolerating well. pt up and ambulating around room. Is calm and denies any questions regarding surgery tomorrow (VATS). Mild edema to bilateral ankles, pt believes it is due to lack of ambulation and sitting for prolonged periods of time.
[2018-11-01 20:29] VITALS: BP 102/58; RESP 16; TEMP 36.4; O2SAT 98
[2018-11-01 23:33] VITALS: BP 122/71; PULSE 60; RESP 16; TEMP 36.7; O2SAT 97
--- NOTE | 2018-11-02 | DI.RAD.S_ITS ---
PROCEDURE: XR CHEST 1V INDICATIONS: chest tube management TECHNIQUE: One view of the chest was acquired. COMPARISON: [facility], CR, XR CHEST 1V, 10/31/2018, 20:13. [facility], CR, XR CHEST 1V, 10/31/2018, 5:42. FINDINGS: Surgical changes and devices: Left lateral chest tube in normal position, minimal residual apical pneumothorax on the left measuring approximately 9 mm at the apex. Lungs and pleura: Lungs are clear. No pleural effusions or pneumothorax. Mediastinum: Mediastinal contours appear normal. Heart size is normal. Bones and chest wall: No suspicious bony lesions. Overlying soft tissues appear unremarkable. IMPRESSION: Chest tube positioning normal, removal of a previously present pleural drain. Apical pneumothorax is small measuring only 9 mm, present also 10/31/18. Dictated by: Ivan Smith M.D. on 11/02/2018 at 11:22 Approved by: Ivan Smith M.D. on 11/02/2018 at 11:23
[2018-11-02 05:00] VITALS: BP 119/64; PULSE 62; RESP 16; TEMP 36.8; O2SAT 97
[2018-11-02 07:40] VITALS: BP 102/65; PULSE 59; RESP 16; TEMP 36.8; O2SAT 97
--- NOTE | 2018-11-02 07:46 | PC.NURSE ---
Addendum entered by Maty Ortiz R.N. 11/02/18 15:33: VATS rescheduled to Friday, Per Pt and Dr Doty, order for meals today, and Pt will go NPO at midnight on Friday for friday procedure. updated. Pt appears disapointed, but remains cooperative with care. Would like to try and shower today. Order rec'd RA, CT to -20cm suction and wall suction for 100 mmHg, serosang drainage. Good Spirits, Oxycodone effective for pain. Original Note: Am shift Pt is NPO this AM and plans for VATS procedure today. rooming in, pain climbing this AM. Oxycodone given with sip of h20. L CT remains in place, no crepitus noted. Serosang drainage to tube, nothing measurable at this time. Spo2 98% RA, Denies SOB, using I.S. ambulating in room. Lungs are clear, t/o.
[2018-11-02] MEDS: OXYCODONE IR 10 MG TABLET PO ×3 (07:53→20:53)
[2018-11-02] MEDS: SODIUM CHLORIDE 0.9% FLUSH 10 ML IV ×2 (07:56→20:54)
[2018-11-02 12:35] VITALS: BP 108/57; PULSE 63; RESP 16; TEMP 36.4; O2SAT 97
[2018-11-02 15:10] VITALS: BP 102/57; PULSE 57; RESP 16; TEMP 36.9; O2SAT 98
[2018-11-02] MEDS: HEPARIN 5,000 UNIT/ML VIAL 5000 UNIT SUBCUT ×2 (17:41→23:21)
--- NOTE | 2018-11-02 19:04 | PM.PN.1 ---
Subjective Date Patient Seen: 11/02/18 Time Patient Seen: 09:00 Interval history: Patient feeling reasonably well, no shortness of the breath, using Is regularly Over weekend small bore chest tube dislodged and surgical chest tube placed Overall patient comfort Exam Vital Signs (past 8 hours): - 11/02/18 12:35 11/02/18 15:10 Temperature 97.5 F L 98.4 F Pulse Rate 63 57 L Respiratory Rate 16 16 Blood Pressure 108/57 L 102/57 L Pulse Oximetry 97 98 Oxygen Delivery Method Room Air Oxygen Flow Rate 0 Narrative Exam Narrative: Appears well, no acute distress Breathing comfortably on room air Chest tube to -20 of suction, minimal output, tiny intermittent air leak Abdomen soft nontender Periphery warm Chest x-ray reviewed shows a residual 1 cm apical pneumothorax on left Objective Labs Result Diagrams: 10/29/18 13:38 10/29/18 13:38 Assessment & Plan Assessment & Plan narrative: 38-year-old man hospital day 6. Admitted for secondary spontaneous pneumothorax in the setting of moderate smoking history. Status post new chest tube over the weekend for displacement of prior small gauge ED chest tube. Small air leak and residual pneumothorax on chest x-ray today. Apical bleb identified on recent CT chest. Given non fully expanded lung, persistent air leak, secondary nature i.e. smoking history of pneumothorax, as well as patient's desire to avoid repeat episode given his travels to remote areas [facility] [place] -he has multiple indications floor of pleurodesis/blebectomy. Over the weekend plans were made to take to surgery today. However OR staff is not available to accommodate. It is unlikely it can be accommodated Friday as well. Plan: Continue chest tube to -20 of suction Plans for VATS with pleurodesis/blebectomy on the affected left side Friday -will remain in hospital until this time Significant conversation had with patient given operative delay -I offered transfer to thoracic surgery colleagues in [place], patient prefers to wait and have care locally. Okay for regular diet MultiModal pain control Heparin for DVT proph
--- NOTE | 2018-11-02 19:11 | P.PN_ITS ---
Subjective Date Patient Seen: 11/02/18 Time Patient Seen: 09:00 Interval history: Patient feeling reasonably well, no shortness of the breath, using Is regularly Over weekend small bore chest tube dislodged and surgical chest tube placed Overall patient comfort Exam Vital Signs (past 8 hours): - 11/02/18 12:35 11/02/18 15:10 Temperature 97.5 F L 98.4 F Pulse Rate 63 57 L Respiratory Rate 16 16 Blood Pressure 108/57 L 102/57 L Pulse Oximetry 97 98 Oxygen Delivery Method Room Air Oxygen Flow Rate 0 Narrative Exam Narrative: Appears well, no acute distress Breathing comfortably on room air Chest tube to -20 of suction, minimal output, tiny intermittent air leak Abdomen soft nontender Periphery warm Chest x-ray reviewed shows a residual 1 cm apical pneumothorax on left Objective Labs Result Diagrams: 10/29/18 13:38 10/29/18 13:38 Assessment & Plan Assessment & Plan narrative: 38-year-old man hospital day 6. Admitted for secondary spontaneous pneumothorax in the setting of moderate smoking history. Status post new chest tube over the weekend for displacement of prior small gauge ED chest tube. Small air leak and residual pneumothorax on chest x-ray today. Apical bleb identified on recent CT chest. Given non fully expanded lung, persistent air leak, secondary nature i.e. smoking history of pneumothorax, as well as patient's desire to avoid repeat episode given his travels to remote areas [facility] [place] -he has multiple indications floor of pleurodesis/blebectomy. Over the weekend plans were made to take to surgery today. However OR staff is not available to accom modate. It is unlikely it can be accommodated Friday as well. Plan: Continue chest tube to -20 of suction Plans for VATS with pleurodesis/blebectomy on the affected left side Friday - will remain in hospital until this time Significant conversation had with patient given operative delay -I offered transfer to thoracic surgery colleagues in [place], patient prefers to wait and have care locally. Okay for regular diet MultiModal pain control Heparin for DVT proph
[2018-11-02 19:40] VITALS: BP 121/75; PULSE 70; RESP 16; TEMP 36.6; O2SAT 98
[2018-11-02 23:52] VITALS: BP 112/57; PULSE 56; RESP 16; TEMP 36.7; O2SAT 97
[2018-11-03] MEDS: OXYCODONE IR 10 MG TABLET PO ×3 (04:12→19:31)
[2018-11-03 04:25] VITALS: BP 110/67; PULSE 55; RESP 16; TEMP 36.4; O2SAT 97
--- NOTE | 2018-11-03 04:28 | PC.NURSE ---
Patient awake at shift change but has been asleep since shortly after. Now awake and states pain is 5/10 but requested full 10mg of Oxycodone for pain control. Is alert and oriented. Breath sounds CTA with RA sat of 97%. HRR but bradycardic at 55 bpm. Denies nausea. BT present; abdomen is soft. Denies dysuria, frequency or urgency. Is getting up at edge of bed and using urinal. Chest tube is intact with old drainage noted on dressing; still within previously drawn outlines. Small intact blisters noted on medial chest and on edge of Tegaderm covering chest tube insertion site. Chest tube is connected to 100mm hg suction as per communication order from Dr Chow. Fall risk score is low.
[2018-11-03] MEDS: HEPARIN 5,000 UNIT/ML VIAL 5000 UNIT SUBCUT ×2 (06:24→22:08)
--- NOTE | 2018-11-03 07:44 | PC.NURSE ---
Addendum entered by Ale Young R.N. 11/03/18 15:10: Heparin: Had 1400 dose of scheduled Heparin. Patient has surgery scheduled for 1015 tomorrow and this chief writer has left messages for both Dr hCow and Dr Doty asking them to call back to clarify if/when they want to hold the heparin. This chief writer did not give 1400 dose for this reason. Will pass on to ashley shift to follow up on (MD still needs to make rounds today). Addendum entered by Ale Young R.N. 11/03/18 13:19: Up in chair for lunch, in visiting. Student RN medicated with 10 mg PO Oxycodone supervised by this chief writer. Informed patient that he's on the surgery schedule for tomorrow at 1015 and will be NPO after midnight. Chest tube remains WNL. Up in chair eating lunch, in visiting. Calls with needs, light in reach. Addendum entered by Ale Young R.N. 11/03/18 10:10: Awake and alert, oriented X3. Denies complaints other than discomfort at chest tube insertion site that occasionally radiates to his back. Rated pain 3/10 at rest, understands he can ask for pain meds at any time, states I usually like to wait as long as I can. Chest tube to 100 mm/Hg wall suction per MD communication from Dr Chow. No air leak noted, no crepitus. Dressing at insertion site dry/intact with old drainage within previously marked margins. Tube secured well to L chest. Patient denies SOB, lungs were clear anteriorly and posteriorly including bilateral bases. Chest x-ray was done this morning. Able to make needs known and calls appropriately. Light in reach. Original Note: Shift summary: Resting quietly in bed with eye mask on. Respirations regular and unlabored, 16/min. FLACC score 0. No s/sx distress or discomfort. Chest tube to 100 mm/Hg continuous wall suction. No air leaks noted, minimal sero-sanguinous drainage in tubing. Hemostats at bedside. Will allow to sleep and complete full assessment when awake. Safely independent in room per report. Call light in reach.
[2018-11-03 09:00] VITALS: BP 124/78; PULSE 69; RESP 16; TEMP 36.5; O2SAT 95
--- NOTE | 2018-11-03 09:03 | DI.RAD.S_ITS ---
PROCEDURE: XR CHEST 1V INDICATIONS: chest tube management Left chest TECHNIQUE: One view of the chest was acquired. COMPARISON: [facility], CT, CT CHEST W CON, 10/31/2018, 16:54. [facility], CR, XR CHEST 1V, 10/31/2018, 20:13. [facility], CR, XR CHEST 1V, 11/02/2018, 10:54. FINDINGS: Surgical changes and devices: There is a stable left-sided chest tube. Lungs and pleura: There is a trace left apical pneumothorax seen, which is slightly decreased in size compared to the prior examination. The lungs otherwise appear clear. Mediastinum: Mediastinal contours appear normal. Heart size is normal. Bones and chest wall: No suspicious bony lesions. A small amount of soft tissue gas can be seen on the left laterally. IMPRESSION: Trace left apical pneumothorax, which is improved compared to the prior plain film. Dictated by: Brenden Griffiths M.D. on 11/03/2018 at 8:42 Approved by: Brenden Griffiths M.D. on 11/03/2018 at 8:44
[2018-11-03] MEDS: SODIUM CHLORIDE 0.9% FLUSH 10 ML IV (09:10)
--- NOTE | 2018-11-03 10:24 | CM.DPC ---
Addendum entered by Melida Ma R.N. 11/03/18 10:58: Checked in with patient and his spouse. Pleasant couple. 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 They are both an active couple. He is pleased with the care that he is receiving here. He anticipates having his surgical procedure today or tomorrow. Will continue to check in with patient. He is up sitting in his chair. Original Note: DCP Cont: Patient was supposed to have surgical procedure yesterday. It is noted that surgery is planned for tomorrow. he will be having Pleuroesis Blebectomy scheduled for tomorrow. At this time, patient remains here in hospital with chest tube. Has supportive spouse as well. P: DCP to continue to follow closely. He will be having surgery tomorrow, and will continue to check in with patient's progress. Melida Ma RN/Environmental Compliance Officer
[2018-11-03 11:35] VITALS: BP 109/66; PULSE 62; RESP 16; TEMP 36.8; O2SAT 97
[2018-11-03 16:00] VITALS: BP 112/71; PULSE 62; RESP 20; TEMP 36.6; O2SAT 99
--- NOTE | 2018-11-03 16:06 | PM.PN.1 ---
Subjective Date Patient Seen: 11/03/18 Time Patient Seen: 16:06 Interval history: Feeling quite well, resting comfort Eager for surgery tomorrow On room air Exam Vital Signs (past 8 hours): - 11/03/18 09:00 11/03/18 11:35 Temperature 97.7 F 98.2 F Pulse Rate 69 62 Respiratory Rate 16 16 Blood Pressure 124/78 109/66 Pulse Oximetry 95 97 Oxygen Delivery Method Room Air Oxygen Flow Rate 0 Narrative Exam Narrative: Well-appearing, breathing comfortably on room air, no tachypnea new pain regular rate and rhythm Abdomen soft nontender Chest to -20 of suction, no leak, minimal output Chest x-ray demonstrates trace apical pneumothorax on the left side Objective Labs Result Diagrams: 10/29/18 13:38 10/29/18 13:38 Assessment & Plan Assessment & Plan narrative: 38-year-old man hospital day 7. Admitted for secondary spontaneous pneumothorax in the setting of moderate smoking history. Status post new chest tube Given non fully expanded lung, persistent air leak, secondary nature i.e. smoking history of pneumothorax, as well as patient's desire to avoid repeat episode given his travels to remote areas [facility] [place] -he has multiple indications floor of pleurodesis/blebectomy. Again OR staff is not available to accommodate today - but pt is now scedule for tomorrow morning Plan: Continue chest tube to -20 of suction Plans for VATS with pleurodesis/blebectomy on the affected left side Friday Okay for regular diet - NPO at [place] MultiModal pain control Heparin for DVT proph ok for evening dose - no tomorrow morning dose
--- NOTE | 2018-11-03 16:09 | P.PN_ITS ---
Subjective Date Patient Seen: 11/03/18 Time Patient Seen: 16:06 Interval history: Feeling quite well, resting comfort Eager for surgery tomorrow On room air Exam Vital Signs (past 8 hours): - 11/03/18 09:00 11/03/18 11:35 Temperature 97.7 F 98.2 F Pulse Rate 69 62 Respiratory Rate 16 16 Blood Pressure 124/78 109/66 Pulse Oximetry 95 97 Oxygen Delivery Method Room Air Oxygen Flow Rate 0 Narrative Exam Narrative: Well-appearing, breathing comfortably on room air, no tachypnea new pain regular rate and rhythm Abdomen soft nontender Chest to -20 of suction, no leak, minimal output Chest x-ray demonstrates trace apical pneumothorax on the left side Objective Labs Result Diagrams: 10/29/18 13:38 10/29/18 13:38 Assessment & Plan Assessment & Plan narrative: 38-year-old man hospital day 7. Admitted for secondary spontaneous pneumothorax in the setting of moderate smoking history. Status post new chest tube Given non fully expanded lung, persistent air leak, secondary nature i.e. smoking history of pneumothorax, as well as patient's desire to avoid repeat episode given his travels to remote areas [facility] [place] -he has multiple indications floor of pleurodesis/blebectomy. Again OR staff is not available to accommodate today - but pt is now scedule for tomorrow morning Plan: Continue chest tube to -20 of suction Plans for VATS with pleurodesis/blebectomy on the affected left side Friday Okay for regular diet - NPO at [place] MultiModal pain control Heparin for DVT proph ok for evening dose - no tomorrow morning dose
[2018-11-03] MEDS: LACTATED RINGERS 1,000 ML 42 ML IV (19:33)
[2018-11-03 20:45] VITALS: BP 111/55; PULSE 60; RESP 18; TEMP 36.2
[2018-11-03] MEDS: LACTATED RINGERS 1,000 ML 75 ML IV (22:09)
[2018-11-04] VITALS (20 sets, daily range): BP systolic 98–154; BP diastolic 45–93; PULSE 56–811; RESP 12–99; TEMP 36–37.1; O2SAT 11–99; BMI 23.1
--- NOTE | 2018-11-04 | PATH_ITS ---
[facility] Accession Number: [id number] . 01 Material submitted: . PART A: lung - APEX LEFT LUNG PART B: lung - LEFT LUNG PARIETAL PLEURA . 02 Diagnosis: A. Left Lung, [place], Wedge Resection: Pleuroparenchymal changes consistent with history of pneumothorax, superimposed on emphysematous change. . B. Left Lung Parietal Pleura, Biopsy: Pleural reactive changes consistent with history of pneumothorax. . MRV/11/06/2018 . 02 Electronically signed: . Linda Cuevas MD, Pathologist NPI- [id number] . 01 Gross description: . (A) Received in formalin, labeled apex left lung, is an unoriented piece of red-brown, [place] and focally pink rubbery piece of lung (5.0 x 2.0 x 1.4 cm) with a stapled resection margin. The parenchyma is focally soft and pale. No nodules, masses or lesions are identified. The resection margin is inked green. Serially sectioned and entirely submitted in cassettes A1-A8. (B) Received in formalin, labeled left parietal pleura lung, is a piece of campoverde-purple semi-translucent pleura (15.5 x 10.3 x 0.1 cm). No nodules, masses or lesions are identified. Storekeeper Helper tissue submitted in cassettes B1-B8. ([id number]) /MRV . 02 Pathologist provided ICD-10: J93.11 . 02 CPT . 151383, [id number] Performed at: [address] [facility], [place], [place] [id number] MD Darvin Whitehead MD Phone: [phone] Performed at: [facility] [place] [address] [place] [id number] MD Linda Cuevas MD Phone: [phone]
[2018-11-04] MEDS: OXYCODONE IR 10 MG TABLET PO (03:17)
--- NOTE | 2018-11-04 03:39 | PC.NURSE ---
Patient asleep since shift change but now awake to use urinal. Has been NPO since 0000 and receiving IVF as is scheduled for surgery at 1015 later today. Is alert and oriented. Breath sounds CTA with RA sat of 96%. Chest tube site unchanged with no new drainage on dressing. Chest tube connected to 100mm hg wall suction. Denies nausea. BT present and abdomen is soft/flat. Voiding per urinal. Independent with mobility. States pain at chest tube site is 7/10 and stabbing with movement; medicated with Oxycodone w/sips of water. Fall risk score is low
--- NOTE | 2018-11-04 08:30 | PM.PN.1 ---
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 He had a small air leak as late as last night when I saw him. Because of his work situation and the fact that he will be stationed in places without access to ready medical care of sort that he would need should this recurs he is being brought for thoracoscopy, bleb resection, and pleurodesis which may involve stripping a portion of his parietal pleura. He is otherwise healthy. He takes no medicines. He has had no prior operations. Review of systems: No cardiac or prior pulmonary problems. No seizures or blackouts. No problems eating. No black or bloody bowel movements. He is otherwise a very healthy gentleman. He does smoke but has not done so since hospitalization. Exam Vital Signs (past 8 hours): - 11/04/18 03:30 11/04/18 08:00 Temperature 98.1 F 97.7 F Pulse Rate 56 L 57 L Respiratory Rate 17 15 Blood Pressure 113/59 L 123/69 Pulse Oximetry 96 98 Oxygen Delivery Method Room Air Oxygen Flow Rate 0 Narrative Exam Narrative: Cooperative gentleman in no apparent distress. Eyes are nonicteric. No nodes in the neck or supraclavicular areas. Lungs are clear to auscultation without rales or rhonchi. Heart regular rate and rhythm without murmur gallop. Abdomen is soft scaphoid nontender without mass or obvious ventral hernia. Patient is alert and oriented x3. Speech rate and content are appropriate. Objective Labs Result Diagrams: 10/29/18 13:38 10/29/18 13:38 Assessment & Plan Assessment & Plan narrative: Otherwise healthy patient with a spontaneous pneumothorax. It has been slow to seal and his work conditions are such that he probably needs a definitive procedure. I have discussed this as has Dr. Doty with him. Risks of bleeding infection recurrence discussed. Please see Dr. Doty is noted as well. All questions answered.
--- NOTE | 2018-11-04 08:38 | PM.PREOP ---
Pre-operative Note Interval Note History & Physical reviewed/Exam performed by Physician: Yes Changes to H&P: No H&P completed within 30 days and has changed as indicated here:: Please see my note from earlier today. Please see notes throughout his hospital stay. The only addition I have is I did not mention that he has a left-sided chest tube in place. No air leak apparent this morning and no fluctuation in the tube.
--- NOTE | 2018-11-04 09:02 | CM.DPC ---
DCP: continued: case again received and EMR for the last several days is noted. Pt is going to surgery this morning for procedure (see specifics of plan in Dr. Chow's note of today). Will check in post surgery and follow prn for needs.
[2018-11-04] MEDS: MORPHINE 2 MG/ML INJ IV (09:33)
[2018-11-04] MEDS: LACTATED RINGERS 1,000 ML 75 ML IV ×3 (09:39→15:16)
--- NOTE | 2018-11-04 10:09 | PC.NURSE ---
Pts chest tube to 100mm of suction with small amount of drainage out, color is light pink. Given iv Morphine to complaints of 5/10 pain to left upper side, where chest tube is placed. Dressing is dry with minimal ss drainage to distal end of dressing. No leakage around tubing site. Pt just down to surgery and will be going to room 106 after to ICU.
--- NOTE | 2018-11-04 10:30 | SUR.HOLD ---
PT TRANSFERRED FROM ACUTE CARE FLOOR TO PRE OP AREA. PT SITTING UP, ALERT AND TALKING TO RN AND AT BEDSIDE. PT DENIES ANY SOB. BILATERAL LUNG SOUNDS CLEAR UPON AUSCULATION. CHEST TUBE IN PLACE ON LEFT SIDE. DRSG OBSERVED TO HAVE NO CHANGE IN DRAINAGE AMOUNT FROM PREVIOUS MARKING. LOW INTERMITTENT SUCTION IN PLACE, NO ADDITIONAL OUTPUT FROM WHEN LEFT ACUTE CARE, NO AIR LEAKS OBSERVED. PT DENIES ANY SOB AT THIS TIME. RR OBSERVED TO BE AT 16.
[2018-11-04] MEDS: CEFTRIAXONE 1 GM/50 ML FROZ.PIGGY IV (10:35)
[2018-11-04] MEDS: BUPIVACAINE 0.25% W/ EPI 30 ML VIAL INJ (12:13)
--- NOTE | 2018-11-04 12:16 | SUR.OPER ---
Lateral on padded OR bed, head on pillow, gel axillary roll in place, bottom leg bent with gel pad under knee to foot, upper leg straight and supported with pillows. Upper arm supported by pillows and secured over bottom arm to padded arm board. Safety belt at hip, tape over blanket lower legs. FLEXED AT WAIST SPINAL ALIGNMENT MAINTAINED
--- NOTE | 2018-11-04 13:10 | P.OP_ITS ---
Operative Date/Time/Diagnoses Date of procedure: 11/04/18 Time of procedure: 13:02 Pre-op diagnosis: Spontaneous pneumothorax Post-op diagnosis: same (Apical bleb disease of the lung) Procedure & Clinicians Procedure: Thoracoscopy, apical bleb resection of the lung, parietal pleurectomy partial with mechanical pleural abrasion of left chest wall/diaphragm. 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 Please note there were 2 Surgeons: Dr. Chow and Dr. Doty.(the template does not allow for listing a 2nd surgeon) Surgeon: Bimal Chow Resource Protection Specialist: Jamal Doty Click Yes if Unassisted: No Anesthesia Type: General Operative Notes Findings: Apical bleb disease Closure Type: primary Specimen(s): other (Portion of pleura and apex of lung containing blood) Prosthetic devices, grafts, tissues, transplants, or devices: None Applied: drain(s) (Two chest tubes) Estimated Blood Loss (mL): 100 Blood products transfused: none Procedure in detail: The patient was placed supine on the operating room table and was intubated with a double-lumen tube. An art line was inserted. The patient was then placed in the right lateral decubitus position on a beanbag with padding of the appropriate areas. His chest tube was removed. His chest was washed with Betadine soap and then He was prepped and draped in the usual fashion. Local anesthetic was infiltrated and an incision made just posterior to the chest tube insertion site. Was carried under direct vision into the chest cavity. Two additional ports were placed. One was placed posterior and 1 inferior. The lung was examined and the area of bleb in the apex was found. No other blood disease was found on examining the remainder of the lung. There was a small area of lung to be removed. Using a 2.4 mm height stapler 2 fires were passed across the apex out removing the area of the bleb. The staple line appeared to be intact. The apical pleura was then scored using hook cautery. Care was taken to avoid major vascular or nervous structures. The pleura was then stripped using blunt dissection off of the chest and the small area where remained attached was divided with laparoscopic Metzenbaum scissors. Water was placed in the chest and the lung was re-expanded. There was no evidence of an air leak as best we could tell. The patient had 2 chest tubes placed prior to expansion of the lung. These were secured with Ethibond suture. The wounds around them and the 1 wound with out a chest tube was closed by suturing muscle and then the skin. Dressings were applied. The tubes were connected it to a Pleur-Evac. The patient was awakened extubated and taken the recovery area. There are no obvious complications. Complications: none Condition: stable Disposition: PACU Plan for aftercare: Will place in the ICU for careful observation for a day or 2.
--- NOTE | 2018-11-04 13:26 | DI.RAD.S_ITS ---
PROCEDURE: XR CHEST 1V INDICATIONS: post operative surgery TECHNIQUE: One view of the chest was acquired. COMPARISON: [facility], CR, XR CHEST 1V, 11/03/2018, 9:08. FINDINGS: Surgical changes and devices: 1 there has been interval placement of a 2nd left-sided chest tube. Both of these chest tubes are directed towards the lung apex. Lungs and pleura: Previously seen small left apical pneumothorax is not readily apparent on this exam. No large effusion is evident. Aeration of the lungs is otherwise unchanged. Mediastinum: Mediastinal contours appear normal. Heart size is normal. Bones and chest wall: No suspicious bony lesions. Overlying soft tissues appear unremarkable. IMPRESSION: 1. 2 left-sided chest tube catheters. 2. No definite pneumothorax. Dictated by: Dung Arias M.D. on 11/04/2018 at 13:16 Approved by: Dung Arias M.D. on 11/04/2018 at 13:20
[2018-11-04] MEDS: HYDROMORPHONE 2 MG INJ 1 MG IV ×2 (13:42→14:11)
[2018-11-04] MEDS: hydrOXYzine 50 MG/ML INJ 25 MG IM (14:34)
[2018-11-04] MEDS: MORPHINE 10 MG/ML INJ 4 MG IV (14:43)
[2018-11-04] MEDS: MORPHINE 4 MG/ML INJ IV ×2 (15:16→16:12)
[2018-11-04] MEDS: HYDROMORPHONE PCA (6MG/30ML) 6 MG/30 ML PCA.VIAL IV ×2 (16:15→21:46)
--- NOTE | 2018-11-04 17:08 | PM.PN.1 ---
Subjective Date Patient Seen: 11/04/18 Time Patient Seen: 17:08 Interval history: Pain but well post op, on RA CT without airleak, minimal serosang output since pacu. on -20 suction Plan: multimodal pain control overnight - MANAGER LAN until expires at MN - then PRN morphine up to 4mg q2hrs CT to suction for next 48hr - cannot be disconnected from suction for any reason. OK for heparin sub Q Exam Vital Signs (past 8 hours): - 11/04/18 10:11 11/04/18 13:29 11/04/18 13:34 Temperature 97.2 F L 96.8 F L Pulse Rate 78 80 80 Respiratory Rate 16 14 13 Blood Pressure 102/70 121/79 121/83 Pulse Oximetry 99 99 96 11/04/18 13:39 11/04/18 13:44 11/04/18 13:49 Temperature Pulse Rate 108 H 84 89 Respiratory Rate 17 13 12 Blood Pressure 127/87 134/85 125/81 Pulse Oximetry 99 98 97 11/04/18 13:54 11/04/18 14:09 11/04/18 14:24 Temperature Pulse Rate 84 91 H 811 H Respiratory Rate 13 12 99 H Blood Pressure 125/81 145/91 H 138/88 Pulse Oximetry 98 97 11/04/18 14:39 11/04/18 14:54 11/04/18 15:05 Temperature 97.5 F L Pulse Rate 83 82 Respiratory Rate 98 H 81 H 16 Blood Pressure 154/93 H 138/85 144/86 H Pulse Oximetry 11 L 11 L 96 11/04/18 15:35 11/04/18 16:05 Temperature 97.7 F 97.7 F Pulse Rate 92 H 94 H Respiratory Rate 15 15 Blood Pressure 139/75 143/73 H Pulse Oximetry 96 95 Oxygen Delivery Method Room Air Oxygen Flow Rate 0 Objective Labs Result Diagrams: 10/29/18 13:38 10/29/18 13:38
[2018-11-04] MEDS: METHOCARBAMOL 500 MG TABLET 750 MG PO ×2 (17:20→21:09)
[2018-11-04] MEDS: HEPARIN 5,000 UNIT/ML VIAL 5000 UNIT SUBCUT ×2 (17:20→23:29)
[2018-11-04] MEDS: ACETAMINOPHEN 325 MG TABLET 975 MG PO (17:21)
[2018-11-04] MEDS: GABAPENTIN 300 MG CAPSULE 900 MG PO (21:10)
--- NOTE | 2018-11-04 21:31 | PC.NURSE ---
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 Patient maintaining saturations on room air 92-98% Patient chest tubes are y'd together and are to suction per MD order. Patient has clear lung sounds. Chest tube dressings are intact. Bright red blood noted in the [place] chamber. IVF infusing at 75cc/hr. Clear yellow urine in the read. BP has been stable since arriving to room 106. Patient is on telemetry Heart rate 67 NSR. is at bedside.
[2018-11-05] VITALS (10 sets, daily range): BP systolic 90–120; BP diastolic 35–68; PULSE 58–74; RESP 10–16; TEMP 36.4–37.2; O2SAT 93–99
[2018-11-05] MEDS: ACETAMINOPHEN 325 MG TABLET 975 MG PO ×4 (00:05→17:29)
[2018-11-05] MEDS: MORPHINE 2 MG/ML INJ IV ×7 (01:37→22:43)
[2018-11-05] MEDS: OXYCODONE IR 5 MG TABLET 10 MG PO ×6 (02:00→23:56)
[2018-11-05] MEDS: LACTATED RINGERS 1,000 ML 75 ML IV ×2 (04:42→19:28)
[2018-11-05 05:20] LABS: Add Manual Diff / Slide Review NO; Basophils Absolute Auto 0 /uL (0-100); Basophils Percent Auto 0.1 % (0-2); Eosinophils Absolute Auto 0 /uL (0-450); Eosinophils Percent Auto 0.5 % (2-4); Hemoglobin 13.2 g/dL (13.5-17.5); Lymphocytes Absolute Auto 1300 /uL (1100-4500); Lymphocytes Percent Auto 17.2 % (25-40); Mean Corpuscular HGB Conc 33.8 % (30-36); Mean Corpuscular Hemoglobin 30.5 PG (26-34); Mean Corpuscular Volume 90.5 fL (80-100); Monocytes Absolute Auto 800 /uL (0-900); Monocytes Percent Auto 10.5 % (3-14); Neutrophils Absolute Auto 5500 /uL (1500-7000); Neutrophils Percent Auto 71.7 % (50-75); Platelet Count 291 X10^3/uL (150-400); Red Blood Cell Count 4.31 X10^6/uL (4.5-5.9); Red Cell Distribution Width 12.6 % (11.6-14.8); White Blood Cell Count 7.7 X10^3/uL (4.5-11.0)
[2018-11-05 05:23] LABS: BUN Creatinine Ratio 17.8 (6-22); Blood Urea Nitrogen 16 mg/dL (9-20); Calcium 8.9 mg/dL (8.4-10.2); Carbon Dioxide 32 mmol/L (22-32); Chloride 99 mmol/L (98-107); Estimated Glomerular Filt Rate > 60.0 mL/min (>60); Glucose 106 mg/dL (70-100); HEMOLYSIS < 15 (0-50); Magnesium 1.8 mg/dL (1.6-2.3); Potassium 4.2 mmol/L (3.4-5.1); Sodium 136 mmol/L (137-145)
[2018-11-05] MEDS: HEPARIN 5,000 UNIT/ML VIAL 5000 UNIT SUBCUT ×3 (06:27→22:43)
--- NOTE | 2018-11-05 06:47 | PC.NURSE ---
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 Mars called and med with Oxycodone with some Morphine with fair management. Main c/o this morning is hungry for solid food.
[2018-11-05] MEDS: METHOCARBAMOL 500 MG TABLET 750 MG PO ×4 (08:16→21:12)
[2018-11-05] MEDS: POLYETHYLENE GLYCOL 3350 17 GM POWD.PACK PO ×2 (09:12→21:12)
[2018-11-05] MEDS: SODIUM CHLORIDE 0.9% FLUSH 10 ML IV ×2 (09:29→21:15)
--- NOTE | 2018-11-05 09:29 | DI.RAD.S_ITS ---
PROCEDURE: XR CHEST 1V INDICATIONS: L chest tube management TECHNIQUE: One view of the chest was acquired. COMPARISON: [facility], , XR CHEST 1V, 11/04/2018, 13:35. FINDINGS: Surgical changes and devices: 2 left-sided chest tubes are again seen, unchanged from previous study. Lungs and pleura: Lungs are clear. No pleural effusions or pneumothorax. Mediastinum: Mediastinal contours appear normal. Heart size is normal. Bones and chest wall: No suspicious bony lesions. Overlying soft tissues appear unremarkable. IMPRESSION: No significant changes from previous day. No obvious pneumothorax is seen. Dictated by: Los Cummings M.D. on 11/05/2018 at 10:18 Approved by: Los Cummings M.D. on 11/05/2018 at 10:19
[2018-11-05] MEDS: MAGNESIUM SULFATE 2 GM/50 ML PIGGYBACK IV (09:57)
--- NOTE | 2018-11-05 10:31 | PC.NURSE ---
Addendum entered by Adela Adams R.N. 11/05/18 14:33: 1430-patient up to bathroomX2; has not voided as of this note. vss. afebrile. pain improved w/PRN morphine and 10mg Oxycodone. no leak noted & dressing CDI, no crepitus noted, patient remains on room air w/sPO2 93-100%. Remains up in chair and at bedside. Original Note: 0700-Received report, bedside safety checks done. assumed care of patient. 0900-MD at bedside, plan to continue fluids, chest xray this am, advance to full liquid diets, discontinue read and patient can get out of bed. 1000-read removed [id number]. patient up to chair w/SBA; some pain with movement otherwise tolerated activity.
--- NOTE | 2018-11-05 11:03 | PM.PN.1 ---
Subjective Date Patient Seen: 11/05/18 Time Patient Seen: 09:00 Interval history: Generally feeling well after surgery yesterday Does have expected degree of pleuritic chest pain from pleurectomy Has been weaned to room air No flatus or bowel movement - hungery Exam Vital Signs (past 8 hours): - 11/05/18 04:00 11/05/18 07:00 Temperature 99.0 F 98.3 F Pulse Rate 69 64 Respiratory Rate 12 14 Blood Pressure 91/35 L 90/37 L Pulse Oximetry 96 97 Oxygen Delivery Method Room Air Oxygen Flow Rate 0 Narrative Exam Narrative: Well-appearing in no acute distress Mucous membranes are moist Breathing comfortably on room air Chest to -20, lightly tented serous output, 200 mL since surgery yesterday Strong radial pulse Abdomen soft nontender nondistended Limon catheter in place draining clear yellow urine Objective Labs Result Diagrams: 11/05/18 05:00 11/05/18 05:00 Labs: Laboratory Results - last 24 hr 11/05/18 11/05/18 05:00 05:00 WBC 7.7 RBC 4.31 L Hgb 13.2 L Hct 39.0 L MCV 90.5 MCH 30.5 MCHC 33.8 RDW 12.6 Plt Count 291 Neut % (Auto) 71.7 Lymph % (Auto) 17.2 L [place] % (Auto) 10.5 Eos % (Auto) 0.5 L Baso % (Auto) 0.1 Neut # (Auto) 5500 Lymph # (Auto) 1300 [place] # (Auto) 800 Eos # (Auto) 0 Baso # (Auto) 0 Sodium 136 L Potassium 4.2 Chloride 99 Carbon Dioxide 32 BUN 16 Creatinine 0.90 Estimated GFR > 60.0 BUN/Creatinine Ratio 17.8 Glucose 106 H Calcium 8.9 Magnesium 1.8 Chest x-ray from this morning reviewed -posterior as well as anterior apical chest tubes well placed-no residual pneumothorax, no effusion retained hemothorax. Assessment & Plan Assessment & Plan narrative: 38-year-old man postop day 1. Status post left VATS with apical blebectomy and parietal pleurectomy for secondary spontaneous pneumothorax. Currently doing quite well without air leak and fully inflated lung without retained collection. Plan: Will remain on -20 of suction until 48 hours post surgery, this will be Friday afternoon. Tomorrow afternoon if chest fully inflated plan on removing his anterior chest tube and switch to water seal. On multimodal pain control Advancing to full liquid diet now, regular diet this evening if doing well Avoiding NSAIDs due to desire for inflammatory adhesions in the chest Limon out today SQ heparin, miralax
--- NOTE | 2018-11-05 13:37 | CM.DPC ---
DCP: continued: case discussed in Team Rounds. Surgical procedure was done yesterday afternoon by Dr. Chow with Dr. Doty assisting. Pt is in ICU with [address] Doty's progress note for today shows that pt is progressing will. DCP team will continue to follow for any d/c needs that may arise. At this point, continue to anticipate that pt will d/c to home with his once stable for same. Expect pt to be here for a few more days...will be looking to surgeon for direction on what might be needed for pt at d/c.
[2018-11-05] MEDS: GABAPENTIN 300 MG CAPSULE 900 MG PO (21:11)
[2018-11-06] MEDS: ACETAMINOPHEN 325 MG TABLET 975 MG PO ×4 (00:06→18:16)
[2018-11-06] MEDS: MORPHINE 2 MG/ML INJ IV ×3 (02:01→11:37)
[2018-11-06] MEDS: OXYCODONE IR 5 MG TABLET 10 MG PO ×2 (05:37→22:37)
[2018-11-06 05:41] VITALS: BP 119/57; PULSE 78; RESP 15; O2SAT 96
[2018-11-06] MEDS: HEPARIN 5,000 UNIT/ML VIAL 5000 UNIT SUBCUT ×3 (05:50→21:27)
--- NOTE | 2018-11-06 06:00 | DI.RAD.S_ITS ---
PROCEDURE: XR CHEST 1V INDICATIONS: Left Chest tube management TECHNIQUE: One view of the chest was acquired. COMPARISON: None. FINDINGS: Surgical changes and devices: Stable positioning of 2 apically directed chest tubes on the left. Lungs and pleura: Lungs are clear. No pleural effusions or pneumothorax. Mediastinum: Mediastinal contours appear normal. Heart size is normal. Bones and chest wall: No suspicious bony lesions. Overlying soft tissues appear unremarkable. IMPRESSION: Stable examination of the chest. No pneumothorax visualized. Dictated by: Brody Blake M.D. on 11/06/2018 at 8:12 Approved by: Brody Blake M.D. on 11/06/2018 at 8:48
[2018-11-06 08:00] VITALS: BP 126/76; PULSE 62; RESP 14; TEMP 36.8; O2SAT 98
[2018-11-06] MEDS: METHOCARBAMOL 500 MG TABLET 750 MG PO ×4 (08:18→21:27)
[2018-11-06] MEDS: LACTATED RINGERS 1,000 ML 75 ML IV (08:18)
[2018-11-06] MEDS: POLYETHYLENE GLYCOL 3350 17 GM POWD.PACK PO ×2 (08:19→21:28)
[2018-11-06] MEDS: OXYCODONE IR 5 MG TABLET PO ×3 (09:18→18:16)
[2018-11-06] MEDS: SODIUM CHLORIDE 0.9% FLUSH 10 ML IV (09:19)
--- NOTE | 2018-11-06 11:15 | DI.RAD.S_ITS ---
PROCEDURE: XR CHEST 1V INDICATIONS: chest tube management TECHNIQUE: One view of the chest was acquired. COMPARISON: [facility], CR, XR CHEST 1V, 11/06/2018, 5:34. FINDINGS: Surgical changes and devices: There has been interval removal of one of the left-sided chest tubes. At least one remaining chest tube is directed toward the lung apex. Postoperative changes of the left upper lobe are present. Lungs and pleura: No definitive residual pneumothorax is appreciated. There is no pleural effusion. Minimal scarring versus atelectasis at the right lung base is unchanged. Mediastinum: Mediastinal contours appear normal. Heart size is normal. Bones and chest wall: No suspicious bony lesions. Overlying soft tissues appear unremarkable. IMPRESSION: No definite pneumothorax. Dictated by: Dung Arias M.D. on 11/06/2018 at 10:46 Approved by: Dung Arias M.D. on 11/06/2018 at 10:49
--- NOTE | 2018-11-06 11:16 | PM.PN.1 ---
Subjective Date Patient Seen: 11/06/18 Time Patient Seen: 11:16 Interval history: Feeling well urinating with relative ease after some post procedure urinary retention yesterday Tolerating regular diet On RA + flatus, no BM yet Exam Vital Signs (past 8 hours): - 11/06/18 05:41 11/06/18 08:00 Temperature 98.3 F Pulse Rate 78 62 Respiratory Rate 15 14 Blood Pressure 119/57 L 126/76 Pulse Oximetry 96 98 Oxygen Delivery Method Room Air Oxygen Flow Rate 0 Narrative Exam Narrative: Well appearing, breathing comfortably on RA Chest tube in place no leak, 50ml serrous output, -20 suction Abd soft mildly distended periphery warm Objective Labs Result Diagrams: 11/05/18 05:00 11/05/18 05:00 Assessment & Plan Assessment & Plan narrative: 38 yo man POD2 s/p Left VATS with apical blebectomy and parietal plurectomy for secondary spontaneous pneumothorax. Doing well At bedside posterior chest tube removed this Am with follow up chest xray showing well inflated well drained lung. Plan: Transfer out of ICU to Acute care TKO IV On tamsulosin for post procedure urinary retention- now resolving On multimodal pain control Heparin for DVT CT to -20 currently - switch to water seal with follow up Chest Xray in 4hrs Weekend chest tube management if on water seal lung fully inflated SAT AM - clamp trial for at least 4hrs. If passes clamp trial OK to remove tube and d/c home Late Fri vs Friday. Follow up with me in clinic.
--- NOTE | 2018-11-06 11:23 | PC.NURSE ---
Addendum entered by Adela Adams R.N. 11/06/18 14:59: 1232-chest tube to water seal per order; plan for repeat chest xray this afternoon. 1300-L upper arm IV discontinued; new 20# to L forearm, NS running at 25cc. 1400-Patient reporting better pain control w/PO regimen; vss, afebrile. no falls or injuries as of this note; report to evening RN. Original Note: 0700-Received report, bedside safety checks done assumed care of patient. patient alert and oriented, chest tube intact no crepitus & no leak noted, +fluctuation w/cough and deep breathing. 1100-MD at bedside for removal of chest tube, posterior chest tube removed per MD anterior chest tube remains in place to suction: dressing placed by MD and patient tolerated procedure with 2mg Morphine administered for pain post procedure.
[2018-11-06 11:32] VITALS: BP 129/67; PULSE 75; RESP 14; TEMP 36.8; O2SAT 96
[2018-11-06 16:18] VITALS: BP 119/56; PULSE 67; RESP 18; TEMP 37.1; O2SAT 97
--- NOTE | 2018-11-06 17:00 | DI.RAD.S_ITS ---
PROCEDURE: XR CHEST 1V INDICATIONS: chest tube management - now on Water seal TECHNIQUE: One view of the chest was acquired. COMPARISON: [facility], CR, XR CHEST 1V, 11/06/2018, 11:23. FINDINGS: Surgical changes and devices: Left chest tube is present with distal tip projecting over the medial left apex. Lungs and pleura: Lungs are clear. No pleural effusions or pneumothorax. Mediastinum: Mediastinal contours appear normal. Heart size is normal. Bones and chest wall: No suspicious bony lesions. Overlying soft tissues appear unremarkable. IMPRESSION: Stable exam without definitive pneumothorax. Dictated by: Deborah Haynes M.D. on 11/06/2018 at 16:58 Approved by: Deborah Haynes M.D. on 11/06/2018 at 16:59
[2018-11-06] MEDS: LIDOCAINE VISCOUS 2% 30 ML, MAG HYDROX/ALUMINUM/SIMETH SUS 30 ML, NYSTATIN SUSP 3,000,0... MM (20:43)
[2018-11-06] MEDS: BENZOCAINE/MENTHOL 1 LOZ PKT 1 EACH PO (20:43)
--- NOTE | 2018-11-06 21:05 | PC.NURSE ---
2029 - Pt requesting to ambulate. Pt TANMAY, into the halls. Reinforced safety. Pt denies SOB, and lightheadedness. Steady gait. 1914 - Pt reports that his throat has become increasingly sore throughout the day. Visual inspection throat and uvula with a couple of very small white areas. Left throat erythema. Call placed to Dr. Delgado. Reviewed labs, vital, abx dose time and . Orders obtained.
[2018-11-06] MEDS: GABAPENTIN 300 MG CAPSULE 900 MG PO (21:27)
[2018-11-06 21:30] VITALS: BP 122/68; PULSE 63; RESP 20; TEMP 36.5; O2SAT 98
[2018-11-07] VITALS (7 sets, daily range): BP systolic 107–119; BP diastolic 56–76; PULSE 71–96; RESP 14–20; TEMP 36.4–36.8; O2SAT 94–98
[2018-11-07] MEDS: MORPHINE 2 MG/ML INJ IV ×3 (00:24→22:38)
[2018-11-07] MEDS: ACETAMINOPHEN 325 MG TABLET 975 MG PO ×3 (00:55→13:30)
[2018-11-07] MEDS: OXYCODONE IR 5 MG TABLET PO ×2 (04:24→09:29)
--- NOTE | 2018-11-07 06:00 | DI.RAD.S_ITS ---
PROCEDURE: XR CHEST 1V INDICATIONS: Chest tube management TECHNIQUE: One view of the chest was acquired. COMPARISON: , CR, XR CHEST 1V, 11/05/2018, 9:33. , CR, XR CHEST 1V, 11/06/2018, 5:34. , CR, XR CHEST 1V, 11/06/2018, 11:23. , CR, XR CHEST 1V, 11/06/2018, 16:49. FINDINGS: Surgical changes and devices: There is a stable left-sided chest tube seen, with the tip at the left lung apex. Lungs and pleura: No left-sided pneumothorax or pleural effusion is seen. The right lung is clear. Mediastinum: Mediastinal contours appear normal. Heart size is normal. Bones and chest wall: No suspicious bony lesions. Overlying soft tissues appear unremarkable. IMPRESSION: Stable left-sided chest tube, without pneumothorax. Dictated by: Brenden Griffiths M.D. on 11/07/2018 at 7:35 Approved by: Brenden Griffiths M.D. on 11/07/2018 at 7:37
[2018-11-07] MEDS: BENZOCAINE/MENTHOL 1 LOZ PKT 1 EACH PO (06:07)
[2018-11-07] MEDS: HEPARIN 5,000 UNIT/ML VIAL 5000 UNIT SUBCUT ×3 (06:07→21:49)
--- NOTE | 2018-11-07 06:36 | PC.NURSE ---
NOC Shift: Pt POD #3 VATS pnuemonectomy Left. Pt w/one left anterior lateral CT remaining to water seal, chest xray in AM to determine to clamp and then D/C. Pt AAOX3, continues to have pain 4 to 5/10 mostly after ambulation, standing at bedside to urinate. Stable lung sounds, dsg. CDI. No noted crepitus, airleaks. Stable sats on room air, pt denies SOB with or w/o activity. Using IS appropriately. Taking pain medications prn. Possible discharge Friday if chest tube removed today.
--- NOTE | 2018-11-07 09:25 | P.PN_ITS ---
Subjective Date Patient Seen: 11/07/18 Time Patient Seen: 09:20 Interval history: Patient is now several days post left apical lobe pulmonary resection for spontaneous pneumothorax. A chest x-ray this morning with the single remaining chest tube on water seal shows no pneumothorax I have compared with the study done last night and there is no change. So he has been on water seal without any problems overnight. Exam Vital Signs (past 8 hours): - 11/07/18 04:29 Temperature 98.2 F Pulse Rate 71 Respiratory Rate 16 Blood Pressure 118/76 Pulse Oximetry 94 Oxygen Delivery Method Room Air Oxygen Flow Rate 0 Narrative Exam Narrative: Patient is alert and oriented. He has good breath sounds bilat erally. Observing the small amount of serum in the chest tube as he breathes it does fluctuate but as he coughs there is no air bubbling through the serum. Objective Labs Result Diagrams: 11/05/18 05:00 11/05/18 05:00 Assessment & Plan Assessment & Plan narrative: Patient has no pneumothorax with a single chest tube on water seal for the last 24 hours basically. Chest x-ray demonstrates no pneumothorax. I removed the chest tube and tied the U stitch and placed an airtight dressing over the chest tube site. Patient is tolerated this well. He will ambulate today and possibly be discharged tomorrow with 1 more chest x-ray.
[2018-11-07] MEDS: METHOCARBAMOL 500 MG TABLET 750 MG PO ×4 (09:29→21:47)
[2018-11-07] MEDS: POLYETHYLENE GLYCOL 3350 17 GM POWD.PACK PO ×2 (09:29→21:48)
[2018-11-07] MEDS: TAMSULOSIN 0.4 MG CAPSULE 0.8 MG PO (09:29)
[2018-11-07] MEDS: SODIUM CHLORIDE 0.9% FLUSH 10 ML IV ×2 (09:30→21:48)
[2018-11-07] MEDS: OXYCODONE IR 5 MG TABLET 10 MG PO ×3 (12:24→21:46)
[2018-11-07] MEDS: LIDOCAINE VISCOUS 2% 30 ML, MAG HYDROX/ALUMINUM/SIMETH SUS 30 ML, NYSTATIN SUSP 3,000,0... MM (13:28)
--- NOTE | 2018-11-07 14:55 | PC.NURSE ---
Day Shift Chest tube removed by , Pt tolerated procedure without issue. medicated with morphine and 5mg oxy. Pt c/o pain about 2.5 hrs after oxy, notified MD and order for 1x dose of 10mg oxy obtained. pt states pain down from 7/10 to 4/10. He is up walking the halls with . did not have BM, urinating without issue. ABDULLAHI WRIGHT.
--- NOTE | 2018-11-07 17:44 | PC.NURSE ---
PATIENT STATES UVULA IS SORE AND HAS TAKEN A PICTURE OF IT ,THER IS A AREA TO THE LEFT SIDE THAT IS DISCOLORED, SHOWED PICTURE TO WHO LOOKED IN ON PATIENT. MAGIC MOUTHWASH GIVEN
[2018-11-07] MEDS: GABAPENTIN 300 MG CAPSULE 900 MG PO (21:46)
[2018-11-08] VITALS: O2SAT 93
[2018-11-08] MEDS: ACETAMINOPHEN 325 MG TABLET 975 MG PO ×2 (00:26→06:22)
[2018-11-08 00:30] VITALS: BP 112/55; PULSE 91; RESP 18; TEMP 36.5; O2SAT 93
[2018-11-08] MEDS: OXYCODONE IR 5 MG TABLET 10 MG PO (04:13)
[2018-11-08 04:14] VITALS: BP 135/77; PULSE 91; RESP 20; TEMP 36.8; O2SAT 98
[2018-11-08] MEDS: HEPARIN 5,000 UNIT/ML VIAL 5000 UNIT SUBCUT (06:23)
--- NOTE | 2018-11-08 08:27 | DI.RAD.S_ITS ---
PROCEDURE: XR CHEST 2V INDICATIONS: sp left bleb resection TECHNIQUE: 2 views of the chest were acquired. COMPARISON: [facility], CT, CT CHEST W CON, 10/31/2018, 16:54. [facility], CR, XR CHEST 1V, 11/06/2018, 11:23. [facility], CR, XR CHEST 1V, 11/06/2018, 16:49. [facility], CR, XR CHEST 1V, 11/07/2018, 5:53. FINDINGS: Surgical changes and devices: The left-sided chest tube has been removed. Lungs and pleura: No pneumothorax is seen. The lungs appear clear. Mediastinum: Mediastinal contours are normal. Heart size is normal. Bones and chest wall: No suspicious bony abnormalities. Soft tissues appear unremarkable. IMPRESSION: No recurrent pneumothorax. Interval removal of the left-sided chest tube. Dictated by: Brenden Griffiths M.D. on 11/08/2018 at 7:32 Approved by: Brenden Griffiths M.D. on 11/08/2018 at 7:33
[2018-11-08 08:53] VITALS: BP 123/76; PULSE 68; RESP 16; TEMP 36.5; O2SAT 99
[2018-11-08 09:05] VITALS: O2SAT 99
[2018-11-08] MEDS: METHOCARBAMOL 500 MG TABLET 750 MG PO (09:12)
[2018-11-08] MEDS: POLYETHYLENE GLYCOL 3350 17 GM POWD.PACK PO (09:13)
[2018-11-08] MEDS: SODIUM CHLORIDE 0.9% FLUSH 10 ML IV (09:13)
--- NOTE | 2018-11-08 10:06 | P.DS_ITS ---
History of Present Illness Chief complaint: pneumothorax Discharge Providers Date of admission: 10/29/18 16:14 Discharge Date: 11/08/18 Consults: 10/29/18 19:49 Consult to Program Coordinator Routine Comment: pt wanting to make sure procedure is covered Discharge provider: Tristen Delgado MD Summary Discharge Diagnosis: Spontaneous left pneumothorax Hospital Course: Patient was admitted with a spontaneous left pneumothorax and underwent VATS bleb resection of the left upper lobe. Postoperatively he did extremely well his last chest tube was removed yesterday this morning's x-ray with no chest tube for 24 hours shows no pneumothorax. Patient is asymptomatic he is feeling very well ambulating well in the halls. Tolerating regular diet. He is discharged to be seen back in the surgery Clinic in a week to have sutures removed. Status at Discharge Cognitive/behavioral status at discharge: oriented Functional status at discharge: independent ambulation Overall status at discharge: patient is back to baseline Time Spent with Patient Less than 30 minutes Exam Vital Signs (past 8 hours): - 11/08/18 04:14 11/08/18 08:53 11/08/18 09:05 Temperature 98.2 F 97.7 F Pulse Rate 91 H 68 Respiratory Rate 20 16 Blood Pressure 135/77 123/76 Pulse Oximetry 98 99 99 Oxygen Delivery Method Room Air Oxygen Flow Rate 0 Narrative Exam Narrative: Patient is afebrile. He is asymptomatic. His lungs are clear with equal breath sounds bilaterally. Chest tube sites are intact. Objective Labs Result Diagrams: 11/05/18 05:00 11/05/18 05:00 Discharge Plan Discharge Plan Patient Disposition: Home Discharge Med Rec/Prescriptions Prescriptions: No Action No Known Home Medications RF: 0 Provider Discharge Instructions Diet: Diet as Tolerated Skin/Wound/Dressing Care Dressing: shower daily, redress as needed Visit Report/Discharge Packet Instructions: DI for Pneumothorax Discharge Data Attending Provider: Jamal Doty Admit Date/Time: 10/29/18 16:14
--- NOTE | 2018-11-08 12:12 | CM.DPC ---
DCP: continued: Case discussed in Team Rounds. Pt is now on medical floor and RN coordinator Elmer noted the chest tubes were out and pt was doing well. Dr. Mars has arrived and ok'd pt for d/c today and he will be going home with his as anticipated.
--- NOTE | 2018-11-08 12:40 | PC.NURSE ---
Discharge Pt states pain controlled this AM with tylenol. Chest xray done. Order for d/c. pt took all belongings home with him. Aware to contact friday to schedule f/u apt in abt one week. dressings changed to gauze and tegaderm per MD verbal order. d/c instructions provided to pt and . left in w/c with [employer] escort.
== END 2018-11-08 12:15 | disposition home or self-care (01) | DRG 164 ==
LOC: ED 13:09 → AC 16:15 → ICU 11-04 10:20 → AC 11-07 15:31
PROVIDERS: Specialist; Admitting Provider Surgery; Emergency Provider Emergency Medicine; Visit Provider Surgery
PROC: 0BBG4ZZ Excision of Left Upper Lung Lobe, Percutaneous Endoscopic Approach (ICD-10-PCS; principal; 2018-11-04 10:15)
DX: J43.8 Other emphysema (principal); J93.83 Other pneumothorax; T85.628A Displacement of other specified internal prosthetic devices, implants and grafts, initial encounter; Z87.891 Personal history of nicotine dependence
CPT/HCPCS: 32551; 36415; 36591; 71045; 71046; 71260; 80048; 80053; 83735; 85025; 85610; 88305; 88307; 94770; 99152; 99284; 99285; J1100; J1170; J1644; J2250; J2270; J2405; J2704; J3010; J3410; Q9967

== ENCOUNTER → 2018-11-16 09:26 | Outpatient (CLI) | payer OTHER, SELFPAY ==
[2018-10-29 16:17] VITALS: BMI 22.9
--- NOTE | 2018-11-16 09:28 | DI.RAD.S_ITS ---
PROCEDURE: XR CHEST 2V INDICATIONS: left lung pneumothorax TECHNIQUE: 2 views of the chest were acquired. COMPARISON: [facility], , XR CHEST 1V, 11/07/2018, 5:53. [facility], CR, XR CHEST 2V, 11/08/2018, 7:43. FINDINGS: Surgical changes and devices: None. Lungs and pleura: Lungs are clear. No pleural effusions or pneumothorax. Mediastinum: Mediastinal contours are normal. Heart size is normal. Bones and chest wall: No suspicious bony abnormalities. Soft tissues appear unremarkable. IMPRESSION: No pneumothorax. No acute cardiopulmonary findings. Dictated by: Margarita Segovia M.D. on 11/16/2018 at 11:43 Approved by: Margarita Segovia M.D. on 11/16/2018 at 11:44
== END ==
PROVIDERS: PCP Physician Assistant; Visit Provider Surgery
DX: J93.9 Pneumothorax, unspecified (principal)
CPT/HCPCS: 71046

== ENCOUNTER → 2019-08-12 07:58 | Outpatient (CLI) | payer OTHER, SELFPAY ==
[2018-10-29 16:17] VITALS: BMI 22.9
--- NOTE | 2019-08-12 | DI.CT.S_ITS ---
PROCEDURE: CT CHEST ABD PEL W CON INDICATIONS: Malignant neoplasm of unspecified testis, unspecif TECHNIQUE: After the administration of oral and intravenous contrast, 5 mm thick sections acquired from the lung apices to the symphysis. 5 mm coronal and sagittal reformats were performed, with additional 7 mm coronal MIP reformats through the lungs. For radiation dose reduction, the following was used: automated exposure control, adjustment of mA and/or kV according to patient size. COMPARISON: [facility], CT, CT CHEST W CON, 10/31/2018, 16:54. FINDINGS: Image quality: Excellent. CHEST: Lungs and pleura: There is a 2 mm noncalcified subpleural nodule in the left lower lobe (series 3 image 161). No acute airspace opacities. No pleural effusions or pneumothorax. Central and peripheral airways appear patent and normal in caliber. Mediastinum: Heart size is normal. No pericardial effusion. No mediastinal or hilar adenopathy by size criteria. Thoracic aorta and central pulmonary arteries are normal in size. Esophagus is normal in caliber. No hiatal hernia. Chest wall: No axillary or supraclavicular adenopathy by size criteria. Thyroid gland is normal. ABDOMEN: Solid organs: There are several tiny indeterminate hepatic hypodensities. Liver is normal in size and enhancement. Gallbladder is normal. Biliary system is non dilated. Pancreas enhances normally. Spleen is normal in size and enhancement. No adrenal nodules. Kidneys demonstrate normal size and enhancement, without hydronephrosis. A few small cortical nodule in kidneys are likely cysts. Peritoneum and bowel: Bowel loops demonstrate normal wall thickness and caliber. No free fluid or air. Nodes and vessels: No retroperitoneal or mesenteric adenopathy by size criteria. Aorta and inferior vena cava are normal in size. Miscellaneous: No ventral hernias. PELVIS: Genitourinary: Bladder wall thickness is normal. Miscellaneous: No inguinal hernias or adenopathy. Bones: No suspicious bony lesions. No vertebral body compression fractures. IMPRESSION: 1. No definitive findings to suggest metastatic disease in the thorax, abdomen or pelvis. 2. A 2 cm left lower lobe lung nodule. Recommend a followup chest CT in 3 months. 3. Small indeterminate cortical hypodensity nodules in kidneys are likely cysts. 4. Tiny indeterminate hepatic hypodensities are most likely cysts. Dictated by: Paxton Montemayor M.D. on 08/12/2019 at 13:46 Approved by: Paxton Montemayor M.D. on 08/12/2019 at 18:29
[2019-08-12 08:29] LABS: Estimated Glomerular Filt Rate > 60.0 mL/min (>60)
== END ==
PROVIDERS: PCP Physician Assistant; Referring Provider Physician Assistant; Visit Provider Urology
DX: C62.90 Malignant neoplasm of unspecified testis, unspecified whether descended or undescended (principal); R91.1 Solitary pulmonary nodule; N28.9 Disorder of kidney and ureter, unspecified
CPT/HCPCS: 36415; 71260; 74177; 82565; Q9967